=== PATIENT | female | born 1945 | race Caucasian/White ===

== ENCOUNTER 2016-05-26 12:07 | Outpatient (RCR) | payer MEDICARE ==
--- OUTSIDE RECORDS SUMMARY | 2016-05-23 11:40 | XMS REPORT | Continuity of Care Document ---
Author Author [facility] Organization [facility] Address Unknown Phone Unavailable Care Team Providers Care Service Delivery Supervisor Name Role Phone Shena Hernandez PCP [phone] Source Comments Some departments are not documenting in the electronic medical record. If you do not see the information that you expected, contact Release of Information in the Health Information Management department at [phone] for further assistance in locating additional records.[facility] Active Allergies and Adverse Reactions Allergen Noted Date Severity Reactions Comments Adhesive Tape (Rosins) 09/01/2013 RASH Current Medications Prescription Sig. Disp. Refills Start End Date Status Date benazepril (LOTENSIN) 40 Take 40 mg by mouth Active mg tablet daily. gemfibrozil (LOPID) 600 Take 600 mg by mouth Active mg tablet twice daily. simvastatin (ZOCOR) 20 mg Take 20 mg by mouth at Active tablet bedtime daily. aspirin EC 81 mg tablet Take 81 mg by mouth Active daily. hydrochlorothiazide Take 50 mg by mouth Active (HYDRODIURIL) 50 mg daily. tablet DOCOSAHEXANOIC ACID/EPA Take by mouth daily. Active (FISH OIL PO) levothyroxine (SYNTHROID) Take 75 mcg by mouth Active 75 mcg tablet daily. metformin-ER(+) Take 1,000 mg by mouth Active (FORTAMET) 1,000 mg daily with dinner. tablet ferrous sulfate 325 mg Take 325 mg by mouth Active (65 mg iron) tablet daily. Active Problems Problem Noted Date Radiation effect 12/01/2014 Dysphagia 08/13/2012 Cancer of base of tongue (HCC) 10/27/2011 Neck mass 10/27/2011 Social History Tobacco Use Types Packs/Day Years Used Date Former Smoker Cigarettes 15 Quit: 11/01/1979 Smokeless Tobacco: Never Used Alcohol Use Drinks/Week oz/Week Comments No Last Filed Vital Signs Vital Sign Reading Time Taken Blood Pressure 121/69 11/29/2015 9:55 AM CDT Pulse 73 11/29/2015 9:55 AM CDT Temperature 37 C (98.6 F) 11/14/2011 4:46 AM CDT Respiratory Rate - - Height 1.676 m (5' 6") 11/29/2015 9:55 AM CDT Weight 90.084 kg (198 lb 9.6 oz) 11/29/2015 9:55 AM CDT Body Mass Index 32.07 11/29/2015 9:55 AM CDT Oxygen Saturation 96% 11/14/2011 4:46 AM CDT Plan of Care Date Type Specialty Providers Description 05/30/2016 Appointment Otolaryngology Shena Hernandez MD [address] [place] [address] [place] [address] [phone] (Fax) Health Maintenance Due Date Last Done Comments Hepatitis C Screening 1945 Physical (Comprehensive) 1954 Exam Pertussis Vaccine 1958 Tetanus Vaccine 1964 Breast Cancer Screening 1987 Colorectal Cancer 1997 Screening Shingles Vaccine 2007 Osteoporosis Screening 2012 Prevnar/Pneumovax (#1) 2012 Influenza Vaccine 04/06/2016 Results from Last 3 Months Not on file
[2016-05-23 11:47] LABS: BASOPHILS % (AUTO) 1 % (0-10); EOSINOPHILS # (AUTO) 0.2 10^3/uL (0.0-0.3); EOSINOPHILS % (AUTO) 4 % (0-10); LYMPHOCYTES # (AUTO) 1.4 X 10^3 (1.0-4.0); LYMPHOCYTES % (AUTO) 29 % (12-44); MEAN CORPUSCULAR HEMOGLOBIN 30 PG (25-34); MEAN CORPUSCULAR HGB CONC 34 G/DL (32-36); MEAN CORPUSCULAR VOLUME 89 FL (80-99); MEAN PLATELET VOLUME 9.6 FL (7.4-10.4); MONOCYTES # (AUTO) 0.5 X 10^3 (0.0-1.0); MONOCYTES % (AUTO) 10 % (0-12); NEUTROPHILS # (AUTO) 2.8 X 10^3 (1.8-7.8); NEUTROPHILS % (AUTO) 57 % (42-75); PLATELET COUNT 284 10^3/uL (130-400); RED BLOOD COUNT 3.58 10^6/uL (4.35-5.85)
[2016-05-23 12:18] LABS: ALANINE AMINOTRANSFERASE 22 U/L (0-55); ALBUMIN 4.2 G/DL (3.2-4.5); ANION GAP 10 MMOL/L (5-14); ASPARTATE AMINO TRANSFERASE 18 U/L (5-34); BILIRUBIN,TOTAL 0.4 MG/DL (0.1-1.0); BLOOD UREA NITROGEN 23 MG/DL (7-18); BUN/CREATININE RATIO 26; CALCIUM 9.1 MG/DL (8.5-10.1); CARBON DIOXIDE 25 MMOL/L (21-32); CHLORIDE 102 MMOL/L (98-107); GFR ESTIMATED > 60; GLUCOSE 114 MG/DL (70-105); POTASSIUM 4.3 MMOL/L (3.6-5.0); SODIUM 137 MMOL/L (135-145)
[2016-05-23 12:41] LABS: THYROID STIMULATING HORMONE 4.39 UIU/ML (0.35-4.94)
[2016-05-23 13:53] LABS: %SAT TOTAL IRON BINDING CAPIC 21 % (15-50); TIBC 338 ug/dL (280-380)
[2016-05-23 15:58] LABS: UIBC 266 ug/dL (55-450)
[2016-05-24 07:54] LABS: FERRITIN 55 ng/mL (15-150)
[~2016-05-26 12:07] MED LIST: ASP81TEC PO; BNZ40T PO; DOCU100T7 PO; GEMF600T3 PO; HYDR12.56 PO; LVT.1T PO; MTF500T PO; MULT-963 PO; OMEG-34 PO; OMEG1CAP51 PO; PANT40TA PO; SIMV40TA4 PO
== END 2016-08-21 | disposition home or self-care (01) ==
LOC: ONC 12:07
PROVIDERS: ATTEND Internal Medicine Hematology & Oncology
DX: Z08 Encounter for follow-up examination after completed treatment for malignant neoplasm (principal); Z85.810 Personal history of malignant neoplasm of tongue; Z85.3 Personal history of malignant neoplasm of breast; D50.9 Iron deficiency anemia, unspecified; E03.9 Hypothyroidism, unspecified; I10 Essential (primary) hypertension; R82.99 Other abnormal findings in urine; Z79.899 Other long term (current) drug therapy
CPT/HCPCS: 36591; 80053; 82378; 82728; 83540; 84443; 85025; 99213

== ENCOUNTER 2016-08-31 12:56 | Outpatient (RCR) | payer MEDICARE ==
--- OUTSIDE RECORDS SUMMARY | 2016-08-28 09:56 | XMS REPORT | Continuity of Care Document ---
Author Author [facility] Organization [facility] Address Unknown Phone Unavailable Care Team Providers Care Tip Printer Name Role Phone Shena Hernandez PCP [phone] Source Comments Some departments are not documenting in the electronic medical record. If you do not see the information that you expected, contact Release of Information in the Health Information Management department at [phone] for further assistance in locating additional records.[facility] Active Allergies and Adverse Reactions Allergen Noted [...] mouth Active (65 mg iron) tablet daily. famotidine (PEPCID) 20 mg Take 20 mg by mouth Active tablet daily. Active Problems Problem Noted Date Radiation effect 12/01/2014 Dysphagia 08/13/2012 Cancer of base of tongue (HCC) 10/27/2011 Neck mass 10/27/2011 Most Recent Encounters Date Type Specialty Providers Description 05/30/2016 Office Visit Otolaryngology Shena Hernandez MD Cancer of base of tongue (HCC) (Primary Dx); Oropharyngeal dysphagia; Radiation effect, sequela Social History Tobacco Use Types Packs/Day Years Used Date Former Smoker Cigarettes 15 Quit: 11/01/1979 Smokeless Tobacco: Never Used Alcohol Use Drinks/Week oz/Week Comments No Last Filed Vital Signs Vital Sign Reading Time Taken Blood Pressure 152/76 05/30/2016 9:37 AM CDT Pulse 89 05/30/2016 9:37 AM CDT Temperature 37 C (98.6 F) 11/14/2011 4:46 AM CDT Respiratory Rate - - Height 1.676 m (5' 6") 05/30/2016 9:37 AM CDT Weight 93.169 kg (205 lb 6.4 oz) 05/30/2016 9:37 AM CDT Body Mass Index 33.17 05/30/2016 9:37 AM CDT Oxygen Saturation 96% 11/14/2011 4:46 AM CDT Plan of Care Date Type Specialty Providers Description 11/23/2016 Appointment Otolaryngology Demian Toscano PA-C [address] [place] [address] [phone] (Fax) Health Maintenance Due Date Last Done Comments Hepatitis C Screening 1945 Physical (Comprehensive) 1954 Exam Pertussis Vaccine 1958 Tetanus Vaccine 1964 Breast Cancer Screening 1987 Colorectal Cancer 1997 Screening Shingles Vaccine 2007 Osteoporosis Screening 2012 Prevnar/Pneumovax (#1) 2012 Influenza Vaccine 04/06/2016 Results from Last 3 Months Not on file
[2016-08-28 10:11] LABS: BASOPHILS % (AUTO) 0 % (0-10); EOSINOPHILS # (AUTO) 0.2 10^3/uL (0.0-0.3); EOSINOPHILS % (AUTO) 5 % (0-10); LYMPHOCYTES # (AUTO) 1.3 X 10^3 (1.0-4.0); LYMPHOCYTES % (AUTO) 28 % (12-44); MEAN CORPUSCULAR HEMOGLOBIN 29 PG (25-34); MEAN CORPUSCULAR HGB CONC 34 G/DL (32-36); MEAN CORPUSCULAR VOLUME 86 FL (80-99); MEAN PLATELET VOLUME 10.1 FL (7.4-10.4); MONOCYTES # (AUTO) 0.4 X 10^3 (0.0-1.0); MONOCYTES % (AUTO) 9 % (0-12); NEUTROPHILS # (AUTO) 2.7 X 10^3 (1.8-7.8); NEUTROPHILS % (AUTO) 59 % (42-75); PLATELET COUNT 264 10^3/uL (130-400); RED BLOOD COUNT 3.74 10^6/uL (4.35-5.85); RED CELL DISTRIBUTION WIDTH 14.8 % (10.0-14.5); WHITE BLOOD COUNT 4.6 10^3/uL (4.3-11.0)
[2016-08-28 10:48] LABS: ALANINE AMINOTRANSFERASE 15 U/L (0-55); ANION GAP 11 MMOL/L (5-14); ASPARTATE AMINO TRANSFERASE 15 U/L (5-34); BILIRUBIN,TOTAL 0.3 MG/DL (0.1-1.0); BLOOD UREA NITROGEN 24 MG/DL (7-18); BUN/CREATININE RATIO 28; CALCIUM 8.4 MG/DL (8.5-10.1); CARBON DIOXIDE 21 MMOL/L (21-32); CHLORIDE 103 MMOL/L (98-107); CREATININE SERUM 0.85 MG/DL (0.60-1.30); GFR ESTIMATED > 60; GLUCOSE 192 MG/DL (70-105); POTASSIUM 3.8 MMOL/L (3.6-5.0); SODIUM 135 MMOL/L (135-145); TOTAL PROTEIN 6.1 G/DL (6.4-8.2)
[2016-08-28 11:07] LABS: THYROID STIMULATING HORMONE 3.79 UIU/ML (0.35-4.94)
[2016-08-28 13:52] LABS: %SAT TOTAL IRON BINDING CAPIC 18 % (15-50); TIBC 388 ug/dL (280-380)
[2016-08-29 07:44] LABS: FERRITIN 22 ng/mL (15-150); UIBC 317 ug/dL (55-450)
== END 2016-11-26 | disposition home or self-care (01) ==
LOC: ONC 12:56
PROVIDERS: ATTEND Internal Medicine Hematology & Oncology
DX: Z08 Encounter for follow-up examination after completed treatment for malignant neoplasm (principal); Z85.810 Personal history of malignant neoplasm of tongue; Z85.3 Personal history of malignant neoplasm of breast; D50.9 Iron deficiency anemia, unspecified; E03.9 Hypothyroidism, unspecified; I10 Essential (primary) hypertension; R82.99 Other abnormal findings in urine; Z79.899 Other long term (current) drug therapy
CPT/HCPCS: 36591; 80053; 82378; 82728; 83540; 84443; 85025; 99213

== ENCOUNTER → 2016-09-08 | Outpatient (CLI) | payer MEDICARE ==
--- OUTSIDE RECORDS SUMMARY | 2016-09-08 11:01 | XMS REPORT | Continuity of Care Document ---
Author Author [facility] Organization [facility] Address Unknown Phone Unavailable Care Team Providers Care Accessories Repairer Name Role Phone Shena Hernandez PCP [phone] Source Comments Some departments are not documenting in the electronic medical record. If you do not see the information that you expected, contact Release of Information in the Health Information Management department at [phone] for further assistance in locating additional records.[facility] Active Allergies and Adverse Reactions Allergen Noted [...] 11/23/2016 Appointment Otolaryngology Demian Toscano PA-C [address] [facility] [address] [place] [address] [phone] (Fax) Health Maintenance Due Date Last Done Comments Hepatitis C Screening 1945 Physical (Comprehensive) 1954 Exam Pertussis Vaccine 1958 Tetanus Vaccine 1964 Breast Cancer Screening 1987 Colorectal Cancer 1997 Screening Shingles Vaccine 2007 Osteoporosis Screening 2012 Prevnar/Pneumovax (#1) 2012 Influenza Vaccine 04/06/2016 Results from Last 3 Months Not on file
--- NOTE | 2016-09-11 13:13 | Diagnostic Imaging Report ---
Bilateral screening mammogram. The current study was also evaluated with a Computer Aided Detection (CAD) system. INDICATION: Screening. No current complaints stated on the questionnaire. COMPARISON: 08/25/15. FINDINGS: The breasts are composed of scattered fibroglandular densities. There are scattered benign-appearing calcifications. Postsurgical changes in the right breast and skin thickening are again noted without change from the previous studies. Benign-appearing calcifications seen. Allowing for technique and positional differences, no suspicious change is seen. IMPRESSION: No significant change. ACR BI-RADS Category 2: Benign findings. Result letter will be mailed to the patient. Note: At least 10% of breast cancer is not imaged by mammography. Dictated by: Dictated on workstation # [id number]
== END ==
LOC: RAD 10:57
PROVIDERS: ATTEND Internal Medicine Hematology & Oncology
DX: Z12.31 Encounter for screening mammogram for malignant neoplasm of breast (principal); C50.511 Malignant neoplasm of lower-outer quadrant of right female breast
CPT/HCPCS: 77067

== ENCOUNTER → 2016-10-16 | Outpatient (CLI) | payer MEDICARE ==
[~2016-10-16] MED LIST changes: +CATHETER FLUSH 10 ML SYR IV PRN; +REGADENOSON 0.4 MG/5 ML SYR (LEXISCAN) IV ONE
--- OUTSIDE RECORDS SUMMARY | 2016-10-16 07:52 | XMS REPORT | Continuity of Care Document ---
Author Author [facility] Organization [facility] Address Unknown Phone Unavailable Care Team Providers Care Produce Wrapper Name Role Phone Shena Hernandez PCP [phone] Source Comments Some departments are not documenting in the electronic medical record. If you do not see the information that you expected, contact Release of Information in the Health Information Management department at [phone] for further assistance in locating additional records.[facility] Active Allergies and Adverse Reactions Allergen Noted [...] 11/23/2016 Appointment Otolaryngology Demian Toscano PA-C [address] [facility] [address] [place] [address] [phone] (Fax) Health Maintenance Due Date Last Done Comments Hepatitis C Screening 1945 Physical (Comprehensive) 1954 Exam Pertussis Vaccine 1958 Tetanus Vaccine 1964 Breast Cancer Screening 1987 Colorectal Cancer 1997 Screening Shingles Vaccine 2007 Osteoporosis Screening 2012 Prevnar/Pneumovax (#1) 2012 Influenza Vaccine 04/06/2016 Results from Last 3 Months Not on file
[2016-10-16 09:48] VITALS: BP 180/92
[2016-10-16 09:51] VITALS: BP 153/82
[2016-10-16 09:53] VITALS: BP 163/93
[2016-10-16 09:56] VITALS: BP 179/85
--- NOTE | 2016-10-17 11:23 | STRESS TEST ---
PROCEDURE PHYSICIAN: ROBBIN JAVIER DATE OF PROCEDURE: 10/16/2016 LEXISCAN MYOVIEW STRESS TEST REPORT: REFERRING PHYSICIAN: Dr. Velez. INDICATION FOR THE PROCEDURE: Chest pain. BASELINE HEART RATE: 85 BASELINE BLOOD PRESSURE: 180/92 BASELINE EKG: Sinus rhythm with no ischemic changes. IN SUMMARY: The patient was injected with 10.86 mCi of technetium 99 Myoview and the resting images were obtained. Then the patient received 0.4 mg of Lexiscan followed by 28.3 mCi of technetium 99 Myoview. Throughout the test, there were no EKG changes. The resting and stress images were reviewed and compared in the short axis, horizontal long axis, and vertical long axis views. Review of the images showed good radiotracer uptake with no significant ischemia or infarction on SPECT images. SSS is 0. TID value 0.85. On the gated images, the left ventricle appeared to be normal size with normal contractility. Calculated ejection fraction 73%. IN CONCLUSION: 1. The patient tolerated Lexiscan well. 2. No ischemia or infarction on SPECT images. 3. Normal left ventricular size with normal contractility. Calculated ejection fraction 73%. Job ID: [id number] Dictated Date: 10/16/2016 17:26:08 Water Tester Date: 10/17/2016 11:21:34 / fadia
== END ==
LOC: CARD 07:48
PROVIDERS: ATTEND Family Medicine
DX: R07.9 Chest pain, unspecified (principal)
CPT/HCPCS: 78452; 93017

== ENCOUNTER 2016-12-28 09:02 | Outpatient (RCR) | payer MEDICARE ==
[2016-12-18 10:04] LABS: BASOPHILS % (AUTO) 1 % (0-10); EOSINOPHILS # (AUTO) 0.2 10^3/uL (0.0-0.3); EOSINOPHILS % (AUTO) 5 % (0-10); LYMPHOCYTES # (AUTO) 1.2 X 10^3 (1.0-4.0); LYMPHOCYTES % (AUTO) 32 % (12-44); MEAN CORPUSCULAR HEMOGLOBIN 30 PG (25-34); MEAN CORPUSCULAR HGB CONC 34 G/DL (32-36); MEAN CORPUSCULAR VOLUME 89 FL (80-99); MONOCYTES # (AUTO) 0.3 X 10^3 (0.0-1.0); MONOCYTES % (AUTO) 9 % (0-12); NEUTROPHILS # (AUTO) 2.1 X 10^3 (1.8-7.8); NEUTROPHILS % (AUTO) 53 % (42-75); PLATELET COUNT 266 10^3/uL (130-400); RED BLOOD COUNT 3.37 10^6/uL (4.35-5.85); RED CELL DISTRIBUTION WIDTH 14.1 % (10.0-14.5); WHITE BLOOD COUNT 3.9 10^3/uL (4.3-11.0)
[2016-12-18 11:13] LABS: ALANINE AMINOTRANSFERASE 18 U/L (0-55); ANION GAP 8 MMOL/L (5-14); ASPARTATE AMINO TRANSFERASE 18 U/L (5-34); BILIRUBIN,TOTAL 0.3 MG/DL (0.1-1.0); BLOOD UREA NITROGEN 24 MG/DL (7-18); BUN/CREATININE RATIO 30; CALCIUM 8.9 MG/DL (8.5-10.1); CARBON DIOXIDE 26 MMOL/L (21-32); CHLORIDE 105 MMOL/L (98-107); CREATININE SERUM 0.81 MG/DL (0.60-1.30); GFR ESTIMATED > 60; GLUCOSE 137 MG/DL (70-105); POTASSIUM 4.1 MMOL/L (3.6-5.0); SODIUM 139 MMOL/L (135-145); TOTAL PROTEIN 6.7 G/DL (6.4-8.2)
[2016-12-18 16:33] LABS: %SAT TOTAL IRON BINDING CAPIC 14 % (15-50); TIBC 423 ug/dL (280-380)
[2016-12-18 16:37] LABS: UIBC 365 ug/dL
[~2016-12-28 09:02] MED LIST changes: -CATHETER FLUSH 10 ML SYR IV PRN; +FERRIC CARBOXYMALTOSE (CANCER) 750 MG in NS (IVPB) CANCER CENTER 250 ML IV SCH; -REGADENOSON 0.4 MG/5 ML SYR (LEXISCAN) IV ONE
== END 2017-03-18 | disposition home or self-care (01) ==
LOC: ONC 09:02
PROVIDERS: ATTEND Internal Medicine Hematology & Oncology
DX: Z08 Encounter for follow-up examination after completed treatment for malignant neoplasm (principal); Z85.810 Personal history of malignant neoplasm of tongue; Z85.3 Personal history of malignant neoplasm of breast; D50.9 Iron deficiency anemia, unspecified; E03.9 Hypothyroidism, unspecified; I10 Essential (primary) hypertension; R82.99 Other abnormal findings in urine; Z79.899 Other long term (current) drug therapy
CPT/HCPCS: 36591; 80053; 81000; 82378; 82728; 83540; 85025; 96365; 99213

== ENCOUNTER 2017-03-26 14:55 | Outpatient (RCR) | payer MEDICARE ==
[~2017-03-26 14:55] MED LIST changes: -FERRIC CARBOXYMALTOSE (CANCER) 750 MG in NS (IVPB) CANCER CENTER 250 ML IV SCH
[2017-03-26 15:24] LABS: BASOPHILS % (AUTO) 0 % (0-10); EOSINOPHILS # (AUTO) 0.2 10^3/uL (0.0-0.3); EOSINOPHILS % (AUTO) 3 % (0-10); LYMPHOCYTES # (AUTO) 1.1 X 10^3 (1.0-4.0); LYMPHOCYTES % (AUTO) 24 % (12-44); MEAN CORPUSCULAR HEMOGLOBIN 31 PG (25-34); MEAN CORPUSCULAR HGB CONC 34 G/DL (32-36); MEAN CORPUSCULAR VOLUME 94 FL (80-99); MONOCYTES # (AUTO) 0.4 X 10^3 (0.0-1.0); MONOCYTES % (AUTO) 9 % (0-12); NEUTROPHILS # (AUTO) 3.1 X 10^3 (1.8-7.8); NEUTROPHILS % (AUTO) 65 % (42-75); PLATELET COUNT 284 10^3/uL (130-400); RED BLOOD COUNT 3.06 10^6/uL (4.35-5.85); RED CELL DISTRIBUTION WIDTH 14.7 % (10.0-14.5); WHITE BLOOD COUNT 4.8 10^3/uL (4.3-11.0)
[2017-03-26 15:54] LABS: ALANINE AMINOTRANSFERASE 15 U/L (0-55); ANION GAP 10 MMOL/L (5-14); ASPARTATE AMINO TRANSFERASE 18 U/L (5-34); BILIRUBIN,TOTAL 0.3 MG/DL (0.1-1.0); BLOOD UREA NITROGEN 22 MG/DL (7-18); BUN/CREATININE RATIO 26; CALCIUM 9.1 MG/DL (8.5-10.1); CARBON DIOXIDE 24 MMOL/L (21-32); CHLORIDE 103 MMOL/L (98-107); CREATININE SERUM 0.85 MG/DL (0.60-1.30); GFR ESTIMATED > 60; GLUCOSE 97 MG/DL (70-105); POTASSIUM 4.1 MMOL/L (3.6-5.0); SODIUM 137 MMOL/L (135-145); TOTAL PROTEIN 6.5 GM/DL (6.4-8.2)
[2017-03-26 16:58] LABS: THYROID STIMULATING HORMONE 3.02 UIU/ML (0.35-4.94)
[2017-03-26 23:26] LABS: %SAT TOTAL IRON BINDING CAPIC 18 % (15-50); TIBC 404 ug/dL (280-380)
[2017-03-27 10:51] LABS: UIBC 332 ug/dL
== END 2017-05-05 | disposition home or self-care (01) ==
LOC: ONC 14:55
PROVIDERS: ATTEND Internal Medicine Hematology & Oncology
DX: Z08 Encounter for follow-up examination after completed treatment for malignant neoplasm (principal); Z85.810 Personal history of malignant neoplasm of tongue; Z85.3 Personal history of malignant neoplasm of breast; D50.9 Iron deficiency anemia, unspecified; E03.9 Hypothyroidism, unspecified; I10 Essential (primary) hypertension; R82.99 Other abnormal findings in urine; Z79.899 Other long term (current) drug therapy
CPT/HCPCS: 36591; 80053; 82378; 82728; 83540; 84443; 85025

== ENCOUNTER 2017-05-22 08:48 | Outpatient (RCR) | payer MEDICARE ==
[2017-05-21 10:51] LABS: BASOPHILS % (AUTO) 1 % (0-10); EOSINOPHILS # (AUTO) 0.2 10^3/uL (0.0-0.3); EOSINOPHILS % (AUTO) 3 % (0-10); HEMATOCRIT 32 % (35-52); HEMOGLOBIN 10.8 G/DL (11.5-16.0); LYMPHOCYTES # (AUTO) 1.2 X 10^3 (1.0-4.0); LYMPHOCYTES % (AUTO) 27 % (12-44); MEAN CORPUSCULAR HEMOGLOBIN 29 PG (25-34); MEAN CORPUSCULAR HGB CONC 33 G/DL (32-36); MEAN CORPUSCULAR VOLUME 87 FL (80-99); MEAN PLATELET VOLUME 9.8 FL (7.4-10.4); MONOCYTES # (AUTO) 0.4 X 10^3 (0.0-1.0); MONOCYTES % (AUTO) 10 % (0-12); NEUTROPHILS # (AUTO) 2.7 X 10^3 (1.8-7.8); NEUTROPHILS % (AUTO) 60 % (42-75); PLATELET COUNT 256 10^3/uL (130-400); RED BLOOD COUNT 3.71 10^6/uL (4.35-5.85); WHITE BLOOD COUNT 4.5 10^3/uL (4.3-11.0)
[2017-05-21 11:23] LABS: ALANINE AMINOTRANSFERASE 17 U/L (0-55); ALKALINE PHOSPHATASE 77 U/L (40-136); BILIRUBIN,TOTAL 0.4 MG/DL (0.1-1.0); BUN/CREATININE RATIO 25; CALCIUM 9.1 MG/DL (8.5-10.1); CARBON DIOXIDE 25 MMOL/L (21-32); CHLORIDE 103 MMOL/L (98-107); CREATININE SERUM 0.83 MG/DL (0.60-1.30); GFR ESTIMATED > 60; GLUCOSE 164 MG/DL (70-105); POTASSIUM 3.7 MMOL/L (3.6-5.0); SODIUM 138 MMOL/L (135-145)
== END 2017-08-19 | disposition home or self-care (01) ==
LOC: ONC 08:48
PROVIDERS: ATTEND Internal Medicine Hematology & Oncology
DX: Z08 Encounter for follow-up examination after completed treatment for malignant neoplasm (principal); Z85.810 Personal history of malignant neoplasm of tongue; Z85.3 Personal history of malignant neoplasm of breast; D50.9 Iron deficiency anemia, unspecified; E03.9 Hypothyroidism, unspecified; I10 Essential (primary) hypertension; R82.99 Other abnormal findings in urine; Z79.899 Other long term (current) drug therapy
CPT/HCPCS: 36415; 80053; 82728; 83540; 85025; 99213

== ENCOUNTER 2017-11-15 10:37 | Outpatient (RCR) | payer MEDICARE ==
[2017-08-23 14:36] LABS: ABSOLUTE RETIC # 43 10e9/L (24-90); BASOPHILS % (AUTO) 1 % (0-10); EOSINOPHILS # (AUTO) 0.2 10^3/uL (0.0-0.3); EOSINOPHILS % (AUTO) 4 % (0-10); HEMATOCRIT 33 % (35-52); HEMOGLOBIN 11.2 G/DL (11.5-16.0); LYMPHOCYTES # (AUTO) 1.3 X 10^3 (1.0-4.0); LYMPHOCYTES % (AUTO) 29 % (12-44); MEAN CORPUSCULAR HEMOGLOBIN 29 PG (25-34); MEAN CORPUSCULAR HGB CONC 34 G/DL (32-36); MEAN CORPUSCULAR VOLUME 85 FL (80-99); MEAN PLATELET VOLUME 10.5 FL (7.4-10.4); MONOCYTES # (AUTO) 0.4 X 10^3 (0.0-1.0); MONOCYTES % (AUTO) 9 % (0-12); NEUTROPHILS # (AUTO) 2.6 X 10^3 (1.8-7.8); NEUTROPHILS % (AUTO) 57 % (42-75); PLATELET COUNT 263 10^3/uL (130-400); RED BLOOD COUNT 3.84 10^6/uL (4.35-5.85); RED CELL DISTRIBUTION WIDTH 13.6 % (10.0-14.5); RETICULOCYTE % 1.12 % (0.50-2.40); WHITE BLOOD COUNT 4.5 10^3/uL (4.3-11.0)
[2017-08-23 15:04] LABS: ALBUMIN 4.1 GM/DL (3.2-4.5); BILIRUBIN,TOTAL 0.4 MG/DL (0.1-1.0); CALCIUM 9.8 MG/DL (8.5-10.1); CREATININE SERUM 0.93 MG/DL (0.60-1.30); POTASSIUM 4.2 MMOL/L (3.6-5.0); TOTAL PROTEIN 7.1 GM/DL (6.4-8.2)
[2017-11-15 11:01] LABS: BASOPHILS % (AUTO) 1 % (0-10); EOSINOPHILS # (AUTO) 0.1 10^3/uL (0.0-0.3); EOSINOPHILS % (AUTO) 4 % (0-10); HEMATOCRIT 34 % (35-52); HEMOGLOBIN 11.8 G/DL (11.5-16.0); LYMPHOCYTES # (AUTO) 1.3 X 10^3 (1.0-4.0); LYMPHOCYTES % (AUTO) 34 % (12-44); MEAN CORPUSCULAR HEMOGLOBIN 30 PG (25-34); MEAN CORPUSCULAR HGB CONC 35 G/DL (32-36); MEAN CORPUSCULAR VOLUME 85 FL (80-99); MEAN PLATELET VOLUME 10.3 FL (7.4-10.4); MONOCYTES # (AUTO) 0.4 X 10^3 (0.0-1.0); MONOCYTES % (AUTO) 11 % (0-12); NEUTROPHILS % (AUTO) 51 % (42-75); PLATELET COUNT 241 10^3/uL (130-400); RED BLOOD COUNT 3.97 10^6/uL (4.35-5.85); RED CELL DISTRIBUTION WIDTH 13.4 % (10.0-14.5); WHITE BLOOD COUNT 3.9 10^3/uL (4.3-11.0)
[2017-11-15 11:30] LABS: ALANINE AMINOTRANSFERASE 21 U/L (0-55); ALBUMIN 4.3 GM/DL (3.2-4.5); ALKALINE PHOSPHATASE 64 U/L (40-136); BILIRUBIN,TOTAL 0.4 MG/DL (0.1-1.0); BUN/CREATININE RATIO 27; CALCIUM 9.3 MG/DL (8.5-10.1); CARBON DIOXIDE 24 MMOL/L (21-32); CHLORIDE 103 MMOL/L (98-107); CREATININE SERUM 0.75 MG/DL (0.60-1.30); GFR ESTIMATED > 60; GLUCOSE 127 MG/DL (70-105); POTASSIUM 4.1 MMOL/L (3.6-5.0); SODIUM 138 MMOL/L (135-145); TOTAL PROTEIN 7.1 GM/DL (6.4-8.2)
== END 2017-11-21 | disposition home or self-care (01) ==
LOC: ONC 10:37
PROVIDERS: ATTEND Internal Medicine Hematology & Oncology
DX: Z08 Encounter for follow-up examination after completed treatment for malignant neoplasm (principal); Z85.810 Personal history of malignant neoplasm of tongue; Z85.3 Personal history of malignant neoplasm of breast; D50.9 Iron deficiency anemia, unspecified; E03.9 Hypothyroidism, unspecified; I10 Essential (primary) hypertension; R82.99 Other abnormal findings in urine; Z79.899 Other long term (current) drug therapy
CPT/HCPCS: 36415; 80053; 82728; 83540; 83550; 84443; 85025; 85045; 99213

== ENCOUNTER 2017-11-22 10:18 | Outpatient (RCR) | payer MEDICARE | END 2018-02-20 | disposition home or self-care (01) | LOC: ONC 10:18 | PROVIDERS: ATTEND Internal Medicine Hematology & Oncology | DX: Z08 Encounter for follow-up examination after completed treatment for malignant neoplasm (principal); Z85.810 Personal history of malignant neoplasm of tongue; Z85.3 Personal history of malignant neoplasm of breast; D50.9 Iron deficiency anemia, unspecified; E03.9 Hypothyroidism, unspecified; I10 Essential (primary) hypertension; R82.99 Other abnormal findings in urine; Z79.899 Other long term (current) drug therapy | CPT/HCPCS: 99213 ==

== ENCOUNTER 2018-02-21 14:10 | Outpatient (RCR) | payer MEDICARE ==
[2018-02-21 14:21] LABS: BASOPHILS % (AUTO) 0 % (0-10); EOSINOPHILS # (AUTO) 0.2 10^3/uL (0.0-0.3); EOSINOPHILS % (AUTO) 5 % (0-10); HEMATOCRIT 35 % (35-52); LYMPHOCYTES # (AUTO) 1.5 X 10^3 (1.0-4.0); LYMPHOCYTES % (AUTO) 33 % (12-44); MEAN CORPUSCULAR HEMOGLOBIN 30 PG (25-34); MEAN CORPUSCULAR HGB CONC 35 G/DL (32-36); MEAN CORPUSCULAR VOLUME 87 FL (80-99); MEAN PLATELET VOLUME 10.3 FL (7.4-10.4); MONOCYTES # (AUTO) 0.4 X 10^3 (0.0-1.0); MONOCYTES % (AUTO) 10 % (0-12); NEUTROPHILS # (AUTO) 2.3 X 10^3 (1.8-7.8); NEUTROPHILS % (AUTO) 52 % (42-75); PLATELET COUNT 267 10^3/uL (130-400); RED CELL DISTRIBUTION WIDTH 13.4 % (10.0-14.5); WHITE BLOOD COUNT 4.5 10^3/uL (4.3-11.0)
[2018-02-21 14:42] LABS: ALANINE AMINOTRANSFERASE 18 U/L (0-55); ALBUMIN 4.2 GM/DL (3.2-4.5); ALKALINE PHOSPHATASE 79 U/L (40-136); BILIRUBIN,TOTAL 0.4 MG/DL (0.1-1.0); BUN/CREATININE RATIO 26; CALCIUM 10.1 MG/DL (8.5-10.1); CARBON DIOXIDE 28 MMOL/L (21-32); CHLORIDE 101 MMOL/L (98-107); CREATININE SERUM 0.82 MG/DL (0.60-1.30); GFR ESTIMATED > 60; GLUCOSE 99 MG/DL (70-105); POTASSIUM 4.2 MMOL/L (3.6-5.0); SODIUM 137 MMOL/L (135-145); TOTAL PROTEIN 7.2 GM/DL (6.4-8.2)
== END 2018-03-05 | disposition home or self-care (01) ==
LOC: ONC 14:10
PROVIDERS: ATTEND Internal Medicine Hematology & Oncology
DX: Z08 Encounter for follow-up examination after completed treatment for malignant neoplasm (principal); Z85.810 Personal history of malignant neoplasm of tongue; Z85.3 Personal history of malignant neoplasm of breast; D50.9 Iron deficiency anemia, unspecified; E03.9 Hypothyroidism, unspecified; I10 Essential (primary) hypertension; R82.99 Other abnormal findings in urine; Z79.899 Other long term (current) drug therapy
CPT/HCPCS: 36415; 80053; 82728; 83540; 85025; 99213

== ENCOUNTER → 2018-06-21 | Outpatient (CLI) | payer MEDICARE ==
--- NOTE | 2018-06-21 12:48 | Diagnostic Imaging Report ---
PROCEDURE: MRI lumbar spine. TECHNIQUE: Multiplanar, multisequence MRI of the lumbar spine was performed without contrast. INDICATION: Multiple falls with severe low back pain extending into the left leg for two weeks. Patient also has history of breast carcinoma. No prior MRI of lumbar spine studies are available for comparison. There is some straightening of the normal lumbar lordotic curvature. Minimal retrolisthesis of L3 on L4 is noted. Vertebral body heights are maintained. No acute compression fracture is identified. There are T1 and T2 hyperintense lesions involving multiple vertebral bodies suggestive of hemangioma lipomas. Prominent Schmorl's node at the superior endplate of T12 is also seen. There is some mild generalized degenerative disc disease with variable disc space narrowing and desiccation. The conus is unremarkable at the L1 level. T12-L1: The central canal and neural foramina are widely patent. L1-L2: Unremarkable. L2-L3: Unremarkable. L3-L4: There is broad-based disc/osteophyte complex indenting the ventral thecal sac. Central canal remains patent. No significant neural foraminal narrowing is seen. L4-L5: There is some broad-based disc/osteophyte complex flattening the ventral thecal sac. Central canal remains patent. There is some narrowing of the lateral recesses bilaterally, left greater. There is also very mild left neural foraminal narrowing. L5-S1: Central canal is widely patent. Neural foramina are patent. Paraspinous tissues demonstrate heterogeneous mass involving the left kidney posteriorly, not entirely included on this study. This measures at least 3.6 cm. This mass appear to measure proximal 1.[address] study from 10/07/2014. IMPRESSION: 1. Generalized lumbar spondylosis with mild neural foraminal and lateral recess narrowing described level by level above. No central canal stenosis or evidence of acute compression fracture is seen. 2. Left renal mass, significantly increased in size since prior CT from 10/07/2014. This may represent a solid mass and this should be considered renal cell carcinoma until proven otherwise. Dedicated CT with and without IV contrast would be recommended for further evaluation. Dictated by: Dictated on workstation # [id number]
== END ==
LOC: RAD 10:32
PROVIDERS: ATTEND Family Medicine
DX: M47.816 Spondylosis without myelopathy or radiculopathy, lumbar region (principal); M99.73 Connective tissue and disc stenosis of intervertebral foramina of lumbar region; M48.061 Spinal stenosis, lumbar region without neurogenic claudication; M43.16 Spondylolisthesis, lumbar region; M89.9 Disorder of bone, unspecified; M51.46 Schmorl's nodes, lumbar region; M51.36 Other intervertebral disc degeneration, lumbar region
CPT/HCPCS: 72148

== ENCOUNTER → 2018-06-25 | Outpatient (CLI) | payer MEDICARE ==
[2018-06-25 09:32] LABS: BUN/CREATININE RATIO 28; CALCIUM 9.6 MG/DL (8.5-10.1); CARBON DIOXIDE 24 MMOL/L (21-32); CHLORIDE 103 MMOL/L (98-107); CREATININE SERUM 0.88 MG/DL (0.60-1.30); GFR ESTIMATED > 60; GLUCOSE 153 MG/DL (70-105); POTASSIUM 4.1 MMOL/L (3.6-5.0); SODIUM 139 MMOL/L (135-145)
== END ==
LOC: LAB 08:57
PROVIDERS: ATTEND Family Medicine
DX: N28.9 Disorder of kidney and ureter, unspecified (principal)
CPT/HCPCS: 36415; 80048

== ENCOUNTER → 2018-06-26 | Outpatient (CLI) | payer MEDICARE ==
[~2018-06-26] MED LIST changes: +RECEIVED CONTRAST (Hold Metformin) IV SCH
[2018-06-26] MEDS: NS 250 ML (IVPB) BAG IV ONE (10:06)
[2018-06-26] MEDS: IOHEXOL 350 MG/ML 100 ML (OMNIPAQUE 350) VIAL IV ONE (10:06)
--- NOTE | 2018-06-26 11:58 | Diagnostic Imaging Report ---
PROCEDURE: CT abdomen and pelvis with and without contrast. TECHNIQUE: Precontrast acquisitions were acquired through the abdomen and pelvis. Multiple contiguous axial images were obtained through the abdomen and pelvis after the administration of intravenous contrast. INDICATION: Left renal mass. FINDINGS: The previous CT chest, abdomen, and pelvis exam performed on 10/07/2014 noted a 0.8 x 1.4 cm exophytic lesion along the posterior aspect of the lower pole of the left kidney. The possibility that this lesion was solid in nature was raised, and ultrasound was recommended to better characterize this finding. The recent lumbar spine exam of 06/21/2018 noted that this lesion had increased in size suggesting it was neoplastic in nature. On this exam, the exophytic lesion has indeed increased in size and now measures 3.6 x 3.8 cm. This lesion does appear to be solid and consequently should be considered neoplastic until proven otherwise. The left kidney is otherwise unremarkable as is the right kidney. As noted on the previous exam, there is a small 7-8 mm low-density lesion in the right lobe of the liver. This finding is most likely a benign process such as a cyst. As noted on the prior study, the liver is enlarged measuring 22 cm in length. The spleen, pancreas, adrenals, aorta, and inferior vena cava are unremarkable for an acute abnormality. The stomach is partially filled with fluid and consequently difficult to assess. The previous CT chest, abdomen, and pelvis exam of 10/07/2014 did suggest a 3.5 x 2.5 cm fat-density lesion within the small bowel. This was felt to be related to a lipoma. That finding is again evident and does not seem to have changed significantly. There is no sign of a small bowel obstruction. The images through the pelvis again show that there is diverticulosis of the sigmoid and descending colon. There is no evidence for acute diverticulitis. The appendix does not appear to be abnormally thickened. The urinary bladder is grossly unremarkable. There does appear to be air within the endometrial canal. This is of uncertain etiology. Correlation with patient's history regarding recent evaluation of the endometrium would be recommended. The bone windows show no sign of a fracture or of a destructive lesion. There does appear to be deformity of the right femoral neck. This may be a sequela of prior trauma. There is scar formation in summation both lung bases. There is no evidence for pneumonia or for a pleural effusion. There is no parenchymal lung mass identified either. IMPRESSION: 1. There is a 3.6 x 3.8 cm solid mass along the inferior pole of the left kidney. This finding should be considered neoplastic until proven otherwise. 2. There is no other evidence for neoplastic disease. 3. There is no acute abnormality of the abdomen or pelvis identified. 4. There is hepatomegaly. 5. The suspected lipoma within the small bowel seen previously is again evident. 6. There is air in the endometrium. This is of uncertain etiology. 7. These results were discussed with Dr. Velez. Dictated by: Dictated on workstation # [id number]
== END ==
LOC: RAD 09:42
PROVIDERS: ATTEND Family Medicine
DX: N28.89 Other specified disorders of kidney and ureter (principal); R16.0 Hepatomegaly, not elsewhere classified
CPT/HCPCS: 74178

== ENCOUNTER → 2018-07-24 | Outpatient (CLI) | payer MEDICARE ==
[~2018-07-24] MED LIST changes: -RECEIVED CONTRAST (Hold Metformin) IV SCH
--- NOTE | 2018-07-24 17:08 | Diagnostic Imaging Report ---
PROCEDURE: US carotid duplex, bilateral. TECHNIQUE: Multiple real-time grayscale images were obtained over the carotid arteries in various projections, bilaterally. Additional spectral analysis and color Doppler duplex images were also obtained. INDICATION: Acute cerebrovascular insufficiency. Diabetes, hypertension. FINDINGS: Parameters based on the consensus panel Encarnacion-Scale and Doppler ultrasound criteria published June 2003, Radiology, Volume 229. DOPPLER (peak systolic velocity M/S Right Left CCA 0.672 0.913 ICA Proximal 0.75 1.03 ICA Mid 0.764 1.14 ICA Distal 0.827 1.18 RATIO 1.23 1.29 ECA 3.08 1.00 VERT NOT SEEN NOT SEEN There is a small amount of plaque seen in the proximal left ICA without significant stenosis seen. There is also a small amount of plaque seen in the proximal right ICA without significant stenosis. The vertebral arteries are not seen bilaterally. No other areas of stenosis are seen in the bilateral carotids. Waveforms are unremarkable. IMPRESSION: 1. Mild atherosclerosis in the proximal internal carotid arteries bilaterally, without hemodynamically significant stenosis. 2. The vertebral arteries are not well seen. Dictated by: Dictated on workstation # [id number]
== END ==
LOC: RAD 14:23
DX: I65.23 Occlusion and stenosis of bilateral carotid arteries (principal); I67.81 Acute cerebrovascular insufficiency; E11.9 Type 2 diabetes mellitus without complications; I10 Essential (primary) hypertension
CPT/HCPCS: 93880

== ENCOUNTER 2018-08-15 10:36 | Outpatient (RCR) | payer MEDICARE ==
[2018-08-15 10:51] LABS: BASOPHILS % (AUTO) 1 % (0-10); EOSINOPHILS # (AUTO) 0.1 10^3/uL (0.0-0.3); EOSINOPHILS % (AUTO) 3 % (0-10); HEMATOCRIT 34 % (35-52); HEMOGLOBIN 11.5 G/DL (11.5-16.0); LYMPHOCYTES # (AUTO) 1.1 X 10^3 (1.0-4.0); LYMPHOCYTES % (AUTO) 27 % (12-44); MEAN CORPUSCULAR HEMOGLOBIN 29 PG (25-34); MEAN CORPUSCULAR HGB CONC 34 G/DL (32-36); MEAN CORPUSCULAR VOLUME 86 FL (80-99); MEAN PLATELET VOLUME 10.1 FL (7.4-10.4); MONOCYTES # (AUTO) 0.3 X 10^3 (0.0-1.0); MONOCYTES % (AUTO) 8 % (0-12); NEUTROPHILS # (AUTO) 2.5 X 10^3 (1.8-7.8); NEUTROPHILS % (AUTO) 61 % (42-75); PLATELET COUNT 241 10^3/uL (130-400); RED CELL DISTRIBUTION WIDTH 13.4 % (10.0-14.5); WHITE BLOOD COUNT 4.1 10^3/uL (4.3-11.0)
[2018-08-15 11:13] LABS: ALANINE AMINOTRANSFERASE 13 U/L (0-55); ALBUMIN 4.2 GM/DL (3.2-4.5); ALKALINE PHOSPHATASE 80 U/L (40-136); BILIRUBIN,TOTAL 0.4 MG/DL (0.1-1.0); BUN/CREATININE RATIO 22; CALCIUM 9.7 MG/DL (8.5-10.1); CARBON DIOXIDE 24 MMOL/L (21-32); CHLORIDE 101 MMOL/L (98-107); CREATININE SERUM 0.86 MG/DL (0.60-1.30); GFR ESTIMATED > 60; GLUCOSE 130 MG/DL (70-105); POTASSIUM 4.3 MMOL/L (3.6-5.0); SODIUM 137 MMOL/L (135-145); TOTAL PROTEIN 7.1 GM/DL (6.4-8.2)
== END 2018-11-13 | disposition home or self-care (01) ==
LOC: ONC 10:36
PROVIDERS: ATTEND Internal Medicine Hematology & Oncology
DX: Z08 Encounter for follow-up examination after completed treatment for malignant neoplasm (principal); Z85.810 Personal history of malignant neoplasm of tongue; Z85.3 Personal history of malignant neoplasm of breast; D50.9 Iron deficiency anemia, unspecified; E03.9 Hypothyroidism, unspecified; I10 Essential (primary) hypertension; R82.998 Other abnormal findings in urine; Z79.899 Other long term (current) drug therapy
CPT/HCPCS: 36415; 80053; 85025; 99213

== ENCOUNTER → 2018-11-27 | Outpatient (CLI) | payer MEDICARE ==
--- NOTE | 2018-11-27 21:32 | Diagnostic Imaging Report ---
INDICATION: Routine screening. COMPARISON: Prior mammograms from 11/26/2017 and 09/08/2016. EXAMINATION: 2D and 3D bilateral screening mammography was performed with CAD. The current study was also evaluated with a Computer Aided Detection (CAD) system. FINDINGS: Scattered fibronodular densities are identified, bilaterally. Post-therapeutic changes in the right breast are again noted. Skin thickening is similar to prior exam. No mass or malignant appearing microcalcifications are seen. There are scattered benign calcifications present. Axillae are unremarkable. IMPRESSION: Stable bilateral mammograms with no mammographic features suspicious for malignancy identified. ACR BI-RADS Category 2: Benign findings. Result letter will be mailed to the patient. Note: At least 10% of breast cancer is not imaged by mammography. Dictated by: Dictated on workstation # [id number]
== END ==
LOC: RAD 10:12
PROVIDERS: ATTEND Internal Medicine Hematology & Oncology
DX: Z12.31 Encounter for screening mammogram for malignant neoplasm of breast (principal)
CPT/HCPCS: 77067

== ENCOUNTER 2018-12-05 10:47 | Outpatient (RCR) | payer MEDICARE ==
[2018-12-05 11:05] LABS: BASOPHILS % (AUTO) 1 % (0-10); EOSINOPHILS # (AUTO) 0.2 10^3/uL (0.0-0.3); EOSINOPHILS % (AUTO) 4 % (0-10); HEMATOCRIT 36 % (35-52); HEMOGLOBIN 12.2 G/DL (11.5-16.0); LYMPHOCYTES # (AUTO) 1.1 X 10^3 (1.0-4.0); LYMPHOCYTES % (AUTO) 27 % (12-44); MEAN CORPUSCULAR HEMOGLOBIN 28 PG (25-34); MEAN CORPUSCULAR HGB CONC 34 G/DL (32-36); MEAN CORPUSCULAR VOLUME 82 FL (80-99); MEAN PLATELET VOLUME 10.2 FL (7.4-10.4); MONOCYTES # (AUTO) 0.5 X 10^3 (0.0-1.0); MONOCYTES % (AUTO) 11 % (0-12); NEUTROPHILS # (AUTO) 2.4 X 10^3 (1.8-7.8); NEUTROPHILS % (AUTO) 58 % (42-75); PLATELET COUNT 226 10^3/uL (130-400); RED CELL DISTRIBUTION WIDTH 14.7 % (10.0-14.5); WHITE BLOOD COUNT 4.2 10^3/uL (4.3-11.0)
[2018-12-05 11:25] LABS: ALANINE AMINOTRANSFERASE 15 U/L (0-55); ALBUMIN 4.1 GM/DL (3.2-4.5); ALKALINE PHOSPHATASE 87 U/L (40-136); BILIRUBIN,TOTAL 0.4 MG/DL (0.1-1.0); BUN/CREATININE RATIO 27; CALCIUM 9.7 MG/DL (8.5-10.1); CARBON DIOXIDE 23 MMOL/L (21-32); CHLORIDE 105 MMOL/L (98-107); CREATININE SERUM 0.78 MG/DL (0.60-1.30); GFR ESTIMATED > 60; GLUCOSE 111 MG/DL (70-105); POTASSIUM 4.3 MMOL/L (3.6-5.0); SODIUM 140 MMOL/L (135-145); TOTAL PROTEIN 7.1 GM/DL (6.4-8.2)
== END 2019-03-05 | disposition home or self-care (01) ==
LOC: ONC 10:47
PROVIDERS: ATTEND Internal Medicine Hematology & Oncology
DX: Z08 Encounter for follow-up examination after completed treatment for malignant neoplasm (principal); Z85.810 Personal history of malignant neoplasm of tongue; Z85.3 Personal history of malignant neoplasm of breast; D50.9 Iron deficiency anemia, unspecified; E03.9 Hypothyroidism, unspecified; I10 Essential (primary) hypertension; R82.998 Other abnormal findings in urine; Z79.899 Other long term (current) drug therapy
CPT/HCPCS: 36415; 80053; 85025; 99213

== ENCOUNTER 2019-02-06 12:52 | Emergency (ER) | payer MEDICARE ==
[~2019-02-06] VITALS: Ht 167.6 cm; Wt 87.1 kg
--- NOTE | 2019-02-06 14:26 | Diagnostic Imaging Report ---
INDICATION: Status post fall, right knee pain. EXAMINATION: Right knee dated 02/06/2019. FINDINGS: No fractures or dislocations are appreciated. Mild degenerative findings throughout the knee noted. Minimal joint effusion is seen. IMPRESSION: 1. Small joint effusion. No acute osseous abnormality. Dictated by: Dictated on workstation # [id number]
--- NOTE | 2019-02-06 14:34 | Diagnostic Imaging Report ---
PROCEDURE: CT head and maxillofacial without contrast. TECHNIQUE: Multiple contiguous axial images were obtained through the head and facial bones without the use of intravenous contrast. Auto Exposure Controls were utilized during the CT exam to meet ALARA standards for radiation dose reduction. INDICATION: Status post fall face down, nosebleed. EXAMINATION: CT brain and CT maxillofacial 02/06/2019. FINDINGS: Brain: There is no evidence for an acute hemorrhage or infarct. No mass, mass effect, or midline shift. Diffuse chronic changes are noted. 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 Correlate with history. The calvarium demonstrates no acute abnormalities. There is a very small air-fluid level noted in the left maxillary sinus. Please see separate maxillofacial report. IMPRESSION: 1. No acute intracranial process. Prominence of the ventricles is likely on the basis of process such as normal pressure hydrocephalus. Correlate with symptoms and history. Maxillofacial bones: There is a slightly comminuted fracture of the nasal bones bilaterally. No significant displacement is seen. Mild adjacent soft tissue swelling noted. Both globes and postseptal Spaces are unremarkable. There is a small air-fluid level in the left maxillary sinus. No surrounding fractures are appreciated and findings are likely due to sinus disease correlate with symptoms. Remaining sinuses demonstrate mucosal thickening. IMPRESSION: 1. Comminuted nasal bone fractures with adjacent mild soft tissue swelling. 2. Sinus disease as described. Mild acute sinusitis in the left maxillary sinus not excluded. Correlate with symptoms. Dictated by: Dictated on workstation # [id number]
--- NOTE | 2019-02-06 14:46 | ED Trauma-Multisystem ---
General Chief Complaint: Trauma-Non Activation Stated Complaint: FALL - NOSE BLEEDING Nursing Triage Note: Nose abrasion, R knee pain, back pain Source of Information: Patient Exam Limitations: No Limitations History of Present Illness Date Seen by Provider: Feb 06, 2019 Time Seen by Provider: 13:30 Initial Comments 73 year old female who presents to the ED with complaints of nose pain and scratches to the nose and right knee pain after her shoes caught on the concrete causing her to fall forward striking her face and knee on the ground. denies loc head or neck pain. Loss of Consciousness: No Loss of Consciousness Allergies and Home Medications Allergies Coded Allergies: No Known Drug Allergies (Unverified , 10/12/11) Home Medications Aspirin 81 Mg Tabec, 81 MG PO DAILY, (Reported) Benazepril Hcl 40 Mg Tablet, 1 EACH PO DAILY, (Reported) Docusate Sodium 100 Mg Tablet, 100 MG PO DAILY, (Reported) Gemfibrozil 600 Mg Tablet, 1 EACH PO BID, (Reported) Hydrochlorothiazide 12.5 Mg Tablet, 1 EACH PO DAILY, (Reported) Levothyroxine Sodium 100 Mcg Tablet, 1 EACH PO DAILY, (Reported) Metformin Hcl 500 Mg Tablet, 2 EACH PO BID WITH MEALS, (Reported) Multivitamin 1 Each Tablet, 1 EACH PO DAILY, (Reported) Baxter-3 Fatty Acids/Fish Oil 1 Each Capsule, 1 EACH PO BID, (Reported) Baxter-3/Dha/Epa/Fish Oil 1 Each Capsule, 1 EACH PO DAILY, (Reported) Pantoprazole Sodium 40 Mg Tablet.dr, 40 MG PO DAILY, (Reported) Simvastatin 40 Mg Tablet, 40 MG PO HS, (Reported) Patient Home Medication List Home Medication List Reviewed: Yes Review of Systems Review of Systems Constitutional: see HPI; No chills, No fever Nose: See HPI, Pain, Other (abrasions to bridge of nose) Musculoskeletal: see HPI, joint pain (right knee pain) All Other Systems Reviewed Negative Unless Noted: Yes Past Wapkbjm-Pbntet-Tdnfyq Hx Past Med/Social Hx: Reviewed Nursing Past Med/Soc Hx Patient Social History Alcohol Use: Denies Use Recreational Drug Use: No Smoking Status: Former Smoker Recent Foreign Travel: No Contact w/Someone Who Travel: No Recent Infectious Disease Expo: No Recent Hopitalizations: No Immunizations Up To Date Date of Pneumonia Vaccine: December 04, 2012 Date of Influenza Vaccine: Jun 06, 2013 Seasonal Allergies Seasonal Allergies: No Past Medical History Surgeries: Yes (KIDNEY, NECK) Gallbladder, Lumpectomy, Orthopedic Respiratory: No Cardiac: Yes (NO LONGER TAKING BP MEDS) Hypertension Neurological: No Reproductive Disorders: No Sexually Transmitted Disease: No Gastrointestinal: Yes Gastroesophageal Reflux Musculoskeletal: No Endocrine: Yes HEENT: No Cancer: Yes Breast Psychosocial: No Integumentary: No Blood Disorders: No Family Medical History Reviewed Nursing Family Hx Physical Exam Vital Signs Vital Signs - First Documented 02/06/19 12:56 Temp 98.4 Pulse 94 Resp 20 B/P (MAP) 207/112 (143) Pulse Ox 98 O2 Delivery Room Air Height, Weight, BMI Height: 5'6.00" Weight: 192lbs. 0.0oz. 87.958071hg; BMI Method:Stated General Appearance: No Apparent Distress, WD/WN Head: No Evidence of Injury Eyes: Bilateral Eye Normal Inspection, Bilateral Eye PERRL, Bilateral Eye EOMI Ears, Nose, Throat: Hearing Grossly Normal, No Dental Injury, Other (abrasion to bridge of nose and resolved epixtaxis. ) Neck: Full Range of Motion, Normal Inspection, Non Tender, Supple Cardiovascular: Regular Rate, Rhythm, No Edema, No Gallop, No JVD, No Murmur, Normal Peripheral Pulses Respiratory: Chest Non Tender, Lungs Clear, Normal Breath Sounds, No Accessory Muscle Use, No Respiratory Distress Extremity: Normal Capillary Refill, Other Neurologic/Psychiatric: Alert, Oriented x3, Normal Mood/Affect Skin: Normal Color, Warm/Dry Viola Coma Score Best Eye Response (Viola): (4) Open Spontaneously Best Verbal Response (Viola): (5) Oriented Best Motor Response (Sara): (6) Obeys Commands Viola Total: 15 Progress/Results/Core Measures Results/Orders My Orders Orders - CARLOS HERNANDEZ Ct Head/Maxillofacial Wo (02/06/19 13:30) Knee, Right, 3 Views (02/06/19 13:30) Vital Signs/I&O 02/06/19 02/06/19 12:56 14:55 Temp 98.4 98.4 Pulse 94 94 Resp 20 20 B/P (MAP) 207/112 (143) 207/112 (143) Pulse Ox 98 98 O2 Delivery Room Air Blood Pressure Mean: 143 Departure Impression Primary Impression: Nose fracture Disposition: 01 HOME, SELF-CARE Condition: Stable/Unchanged Departure-Patient Inst. Decision time for Depature: 14:42 Referrals: LATESHA BARROW DO (PCP/Family) Primary Care Physician Patient Instructions: Nose Fracture, Skin Abrasions (DC) Add. Discharge Instructions: You may use ibuprofen and Tylenol as directed by the bottle for pain relief. Keep your abrasions cleaned and fresh daily dressings. Follow-up with your primary care provider within within 1 week for recheck. Return back to the em ergency room for worsening symptoms or concerns as. All discharge instructions reviewed with patient and/or family. Voiced understanding. CARLOS HERNANDEZ Feb 06, 2019 14:46
[2019-02-06 14:55] VITALS: BP 207/112
== END 2019-02-06 14:55 | disposition home or self-care (01) ==
LOC: EDUNIT# 12:52 → ER 12:53
DX: S02.2XXA Fracture of nasal bones, initial encounter for closed fracture (principal); I10 Essential (primary) hypertension; K21.9 Gastro-esophageal reflux disease without esophagitis; Z85.3 Personal history of malignant neoplasm of breast; Z79.82 Long term (current) use of aspirin; Z79.84 Long term (current) use of oral hypoglycemic drugs; Z87.891 Personal history of nicotine dependence; Z91.14 Patient's other noncompliance with medication regimen
CPT/HCPCS: 70450; 70486; 73562

== ENCOUNTER → 2019-05-22 | Outpatient (CLI) | payer MEDICARE ==
[2019-05-22 10:03] LABS: BASOPHILS % (AUTO) 0 % (0-10); EOSINOPHILS # (AUTO) 0.2 10^3/uL (0.0-0.3); EOSINOPHILS % (AUTO) 4 % (0-10); HEMATOCRIT 38 % (35-52); HEMOGLOBIN 12.8 G/DL (11.5-16.0); LYMPHOCYTES # (AUTO) 0.9 X 10^3 (1.0-4.0); LYMPHOCYTES % (AUTO) 21 % (12-44); MEAN CORPUSCULAR HEMOGLOBIN 29 PG (25-34); MEAN CORPUSCULAR HGB CONC 34 G/DL (32-36); MEAN CORPUSCULAR VOLUME 86 FL (80-99); MEAN PLATELET VOLUME 10.1 FL (7.4-10.4); MONOCYTES # (AUTO) 0.3 X 10^3 (0.0-1.0); MONOCYTES % (AUTO) 6 % (0-12); NEUTROPHILS # (AUTO) 3.1 X 10^3 (1.8-7.8); NEUTROPHILS % (AUTO) 69 % (42-75); PLATELET COUNT 213 10^3/uL (130-400); RED CELL DISTRIBUTION WIDTH 13.7 % (10.0-14.5); WHITE BLOOD COUNT 4.4 10^3/uL (4.3-11.0)
[2019-05-22 10:29] LABS: ALANINE AMINOTRANSFERASE 14 U/L (0-55); ALKALINE PHOSPHATASE 126 U/L (40-136); BILIRUBIN,TOTAL 0.4 MG/DL (0.1-1.0); BUN/CREATININE RATIO 31; CALCIUM 9.3 MG/DL (8.5-10.1); CARBON DIOXIDE 24 MMOL/L (21-32); CHLORIDE 103 MMOL/L (98-107); CREATININE SERUM 0.83 MG/DL (0.60-1.30); GFR ESTIMATED > 60; GLUCOSE 191 MG/DL (70-105); POTASSIUM 4.2 MMOL/L (3.6-5.0); SODIUM 138 MMOL/L (135-145); TOTAL PROTEIN 7.3 GM/DL (6.4-8.2)
== END ==
LOC: EDSTATUS 03-06 09:40 → ONC 09:41
PROVIDERS: ATTEND Internal Medicine Hematology & Oncology
DX: Z08 Encounter for follow-up examination after completed treatment for malignant neoplasm (principal); Z85.810 Personal history of malignant neoplasm of tongue; Z85.3 Personal history of malignant neoplasm of breast; E03.9 Hypothyroidism, unspecified; D50.9 Iron deficiency anemia, unspecified; I10 Essential (primary) hypertension; Z79.899 Other long term (current) drug therapy
CPT/HCPCS: 36415; 80053; 84443; 85025

== ENCOUNTER → 2019-12-01 | Outpatient (CLI) | payer MEDICARE ==
[2019-12-01 09:08] LABS: BASOPHILS % (AUTO) 1 % (0-10); EOSINOPHILS # (AUTO) 0.2 10^3/uL (0.0-0.3); EOSINOPHILS % (AUTO) 4 % (0-10); HEMATOCRIT 38 % (35-52); HEMOGLOBIN 12.6 G/DL (11.5-16.0); LYMPHOCYTES # (AUTO) 1.4 X 10^3 (1.0-4.0); LYMPHOCYTES % (AUTO) 32 % (12-44); MEAN CORPUSCULAR HEMOGLOBIN 29 PG (25-34); MEAN CORPUSCULAR HGB CONC 34 G/DL (32-36); MEAN CORPUSCULAR VOLUME 85 FL (80-99); MONOCYTES # (AUTO) 0.4 X 10^3 (0.0-1.0); MONOCYTES % (AUTO) 9 % (0-12); NEUTROPHILS # (AUTO) 2.5 X 10^3 (1.8-7.8); NEUTROPHILS % (AUTO) 54 % (42-75); PLATELET COUNT 223 10^3/uL (130-400); RED CELL DISTRIBUTION WIDTH 14.2 % (10.0-14.5); WHITE BLOOD COUNT 4.5 10^3/uL (4.3-11.0)
[2019-12-01 09:26] LABS: ALBUMIN 3.9 GM/DL (3.2-4.5); BILIRUBIN,TOTAL 0.3 MG/DL (0.1-1.0); CALCIUM 9.1 MG/DL (8.5-10.1); CREATININE SERUM 0.97 MG/DL (0.60-1.30); POTASSIUM 4.4 MMOL/L (3.6-5.0); TOTAL PROTEIN 6.9 GM/DL (6.4-8.2)
== END ==
LOC: ONC 09:00
PROVIDERS: ATTEND Internal Medicine Hematology & Oncology
DX: Z08 Encounter for follow-up examination after completed treatment for malignant neoplasm (principal); Z85.810 Personal history of malignant neoplasm of tongue; Z85.3 Personal history of malignant neoplasm of breast; E03.9 Hypothyroidism, unspecified; D50.9 Iron deficiency anemia, unspecified; I10 Essential (primary) hypertension; Z79.899 Other long term (current) drug therapy
CPT/HCPCS: 80053; 84443; 85025; 99213

== ENCOUNTER → 2020-05-31 | Outpatient (CLI) | payer MEDICARE ==
[2020-05-31 09:19] LABS: BASOPHILS % (AUTO) 1 % (0-10); EOSINOPHILS # (AUTO) 0.2 10^3/uL (0.0-0.3); EOSINOPHILS % (AUTO) 3 % (0-10); HEMATOCRIT 40 % (35-52); HEMOGLOBIN 13.5 g/dL (11.5-16.0); LYMPHOCYTES # (AUTO) 1.2 10^3/uL (1.0-4.0); LYMPHOCYTES % (AUTO) 25 % (12-44); MEAN CORPUSCULAR HEMOGLOBIN 29 pg (25-34); MEAN CORPUSCULAR HGB CONC 34 g/dL (32-36); MEAN CORPUSCULAR VOLUME 87 fL (80-99); MEAN PLATELET VOLUME 10.3 fL (9.0-12.2); MONOCYTES # (AUTO) 0.4 10^3/uL (0.0-1.0); MONOCYTES % (AUTO) 7 % (0-12); NEUTROPHILS % (AUTO) 63 % (42-75); PLATELET COUNT 222 10^3/uL (130-400); WHITE BLOOD COUNT 4.7 10^3/uL (4.3-11.0)
[2020-05-31 09:39] LABS: ALANINE AMINOTRANSFERASE 14 U/L (0-55); ALKALINE PHOSPHATASE 86 U/L (40-136); BILIRUBIN,TOTAL 0.4 MG/DL (0.1-1.0); BUN/CREATININE RATIO 25; CARBON DIOXIDE 23 MMOL/L (21-32); CHLORIDE 100 MMOL/L (98-107); CREATININE SERUM 0.81 MG/DL (0.60-1.30); GFR ESTIMATED > 60; GLUCOSE 252 MG/DL (70-105); POTASSIUM 4.2 MMOL/L (3.6-5.0); SODIUM 136 MMOL/L (135-145); TOTAL PROTEIN 7.3 GM/DL (6.4-8.2)
== END ==
LOC: ONC 09:01
PROVIDERS: ATTEND Internal Medicine Hematology & Oncology
DX: D50.9 Iron deficiency anemia, unspecified (principal); E03.9 Hypothyroidism, unspecified; I10 Essential (primary) hypertension; E66.9 Obesity, unspecified; Z78.9 Other specified health status; Z85.3 Personal history of malignant neoplasm of breast; Z85.810 Personal history of malignant neoplasm of tongue
CPT/HCPCS: 80053; 84443; 85025; G0463; 99213

== ENCOUNTER → 2020-12-06 | Outpatient (CLI) | payer MEDICARE ==
[2020-12-06 13:28] LABS: BASOPHILS % (AUTO) 1 % (0-10); EOSINOPHILS # (AUTO) 0.2 10^3/uL (0.0-0.3); EOSINOPHILS % (AUTO) 4 % (0-10); HEMATOCRIT 41 % (35-52); HEMOGLOBIN 13.1 g/dL (11.5-16.0); LYMPHOCYTES # (AUTO) 1.3 10^3/uL (1.0-4.0); LYMPHOCYTES % (AUTO) 29 % (12-44); MEAN CORPUSCULAR HEMOGLOBIN 28 pg (25-34); MEAN CORPUSCULAR HGB CONC 32 g/dL (32-36); MEAN CORPUSCULAR VOLUME 87 fL (80-99); MEAN PLATELET VOLUME 10.3 fL (9.0-12.2); MONOCYTES # (AUTO) 0.4 10^3/uL (0.0-1.0); MONOCYTES % (AUTO) 9 % (0-12); NEUTROPHILS # (AUTO) 2.4 10^3/uL (1.8-7.8); NEUTROPHILS % (AUTO) 56 % (42-75); PLATELET COUNT 263 10^3/uL (130-400); WHITE BLOOD COUNT 4.3 10^3/uL (4.3-11.0)
[2020-12-06 13:46] LABS: ALANINE AMINOTRANSFERASE 11 U/L (0-55); ALBUMIN 3.8 GM/DL (3.2-4.5); ALKALINE PHOSPHATASE 106 U/L (40-136); BILIRUBIN,TOTAL 0.4 MG/DL (0.1-1.0); BUN/CREATININE RATIO 21; CALCIUM 8.9 MG/DL (8.5-10.1); CARBON DIOXIDE 29 MMOL/L (21-32); CHLORIDE 99 MMOL/L (98-107); CREATININE SERUM 0.82 MG/DL (0.60-1.30); GFR ESTIMATED > 60; GLUCOSE 122 MG/DL (70-105); POTASSIUM 4.3 MMOL/L (3.6-5.0); SODIUM 136 MMOL/L (135-145); TOTAL PROTEIN 7.3 GM/DL (6.4-8.2)
== END ==
LOC: ONC 13:10
PROVIDERS: ATTEND Internal Medicine Hematology & Oncology
DX: C50.911 Malignant neoplasm of unspecified site of right female breast (principal); C02.9 Malignant neoplasm of tongue, unspecified; E03.9 Hypothyroidism, unspecified; D63.0 Anemia in neoplastic disease; D50.9 Iron deficiency anemia, unspecified; E66.8 Other obesity; I10 Essential (primary) hypertension; Z98.890 Other specified postprocedural states; Z68.34 Body mass index [BMI] 34.0-34.9, adult; Z79.899 Other long term (current) drug therapy
CPT/HCPCS: 80053; 84443; 85025; G0463; 99213

== ENCOUNTER → 2020-12-14 | Outpatient (CLI) | payer MEDICARE ==
--- NOTE | 2020-12-14 13:14 | Diagnostic Imaging Report ---
INDICATION: Shortness of breath PA and lateral chest Heart size and pulmonary vascularity are both mildly increased. There are no appreciable effusions or pneumothoraces. IMPRESSION: Mild pulmonary venous hypertension. Dictated by: Dictated on workstation # [id number]
== END ==
LOC: RAD 11:51
PROVIDERS: ATTEND Family Medicine
DX: I27.20 Pulmonary hypertension, unspecified (principal)
CPT/HCPCS: 36415; 71046; 83880

== ENCOUNTER → 2021-05-16 | Outpatient (CLI) | payer MEDICARE ==
[~2021-05-16] MED LIST changes: +CEFD300C3 PO; +DOCU-26 PO; +FURO40TA4 PO; +GEMF600T88 PO; +LEVO200T62 PO; +METF-397 PO; +SIMV20TA26 PO
== END ==
LOC: ONC 10:11
PROVIDERS: ATTEND Radiology Radiation Oncology
DX: C50.512 Malignant neoplasm of lower-outer quadrant of left female breast (principal); C02.9 Malignant neoplasm of tongue, unspecified; J18.9 Pneumonia, unspecified organism; D50.9 Iron deficiency anemia, unspecified; I10 Essential (primary) hypertension; E03.9 Hypothyroidism, unspecified; E66.9 Obesity, unspecified; Z20.822 Contact with and (suspected) exposure to COVID-19; Z85.3 Personal history of malignant neoplasm of breast
CPT/HCPCS: 99213

== ENCOUNTER → 2021-07-06 | Outpatient (CLI) | payer MEDICARE ==
[~2021-07-06] MED LIST changes: +BARIUM SUSPENSION 2.1% (VANILLA SILQ) 450 ML PO ONE; +CATHETER FLUSH 10 ML SYR IV PRN; +HOLD METFORMIN - RECEIVED CONTRAST 20 ML VIAL IV SCH; +IOHEXOL 350 MG/ML 100 ML (OMNIPAQUE 350) VIAL IV ONE; +NS 100 ML (IVPB) BAG IV ONE
--- NOTE | 2021-07-06 11:48 | Diagnostic Imaging Report ---
PROCEDURE: CT chest, abdomen, and pelvis with contrast. TECHNIQUE: Multiple contiguous axial images were obtained through the chest, abdomen, and pelvis after the administration of intravenous contrast. Auto Exposure Controls were utilized during the CT exam to meet ALARA standards for radiation dose reduction. 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 History of right breast cancer with lumpectomy. CORRELATION STUDY: CT angio chest 04/19/2021, CT abdomen and pelvis 06/26/2018. FINDINGS: CT CHEST: Postoperative changes in the lateral right breast and axilla with multiple surgical clips and some soft tissue distortion. No suggestion of pathologically enlarged mediastinal, hilar, axillary, and/or internal mammary lymph nodes. Heart size is mildly enlarged with calcification of the mitral valve. Scattered coronary artery calcifications. No pericardial effusion. Likely subpleural fibrosis of the anterior right upper lung. Asymmetrically elevated right diaphragm. Likely areas of scarring about both lung bases. The lung sanches overall are improved. The previously noted more focal mass-like areas of consolidation about the medial right upper lobe and superior segment of the left lower lobe have resolved. Currently, no suspicious appearing pulmonary mass. Small nodule in the anteromedial left upper lobe, stable. Prominent bridging osteophytes through the thoracic spine. No cuca lytic or destructive change. CT ABDOMEN and PELVIS: Very small low-density foci in the subcapsular region of anterolateral right hepatic lobe, stable. Gallbladder absent. Spleen, pancreas, and right adrenal gland appear unchanged and unremarkable. Surgical clips in and around the left suprarenal region present. Slight soft tissue distortion. Right kidney generally unremarkable. Postoperative changes with distortion of the left kidney. Distortion of the left lateral abdominal wall likely on a postoperative bases. Dense aortoiliac wall calcification. A few shotty aortocaval and mesenteric lymph nodes. No definitive pathologically enlarged lymphadenopathy. Gastrointestinal tract demonstrates colonic diverticulosis. Distal colonic fecal loading. Lipoma associated with the small bowel in the left upper quadrant appears slightly larger. No obstruction. Urinary bladder unremarkable. Uterus is somewhat prominent. Additionally, low-density foci near the fundal aspect of the endometrium. Advanced degenerative changes in the bilateral hips, right greater than left. Degenerative changes in the visualized thoracic and lumbar spine. No cuca lytic or destructive change. IMPRESSION: CT CHEST: 1. Improvement at follow-up assessment. The previously noted pulmonary parenchymal opacities have essentially resolved. Currently, no concerning pulmonary mass. 2. Previously noted mediastinal and hilar lymphadenopathy also appears improved. No concerning pathologically enlarged thoracic lymphadenopathy. CT ABDOMEN and PELVIS: 1. No CT findings to suggest abdominal or pelvic metastatic disease. 2. Prior surgical changes of the left kidney and perirenal region. Distortion deformity of the left lateral abdominal wall. 3. Suggestion of prominent appearance of the fundal endometrium. Consideration for follow-up pelvic ultrasound imaging would be recommended. Dictated by: Dictated on workstation # [id number]
== END ==
LOC: RAD 09:45
PROVIDERS: ATTEND Internal Medicine Hematology & Oncology
DX: Q79.59 Other congenital malformations of abdominal wall (principal); Z85.810 Personal history of malignant neoplasm of tongue; Z85.3 Personal history of malignant neoplasm of breast; Z90.11 Acquired absence of right breast and nipple
CPT/HCPCS: 71260; 74177

== ENCOUNTER 2021-07-11 09:17 | Outpatient (RCR) | payer MEDICARE ==
[2021-07-06 09:24] LABS: BASOPHILS % (AUTO) 1 % (0-10); EOSINOPHILS # (AUTO) 0.2 10^3/uL (0.0-0.3); EOSINOPHILS % (AUTO) 4 % (0-10); HEMATOCRIT 36 % (35-52); HEMOGLOBIN 10.9 g/dL (11.5-16.0); LYMPHOCYTES # (AUTO) 1.3 10^3/uL (1.0-4.0); LYMPHOCYTES % (AUTO) 26 % (12-44); MEAN CORPUSCULAR HEMOGLOBIN 24 pg (25-34); MEAN CORPUSCULAR HGB CONC 30 g/dL (32-36); MEAN CORPUSCULAR VOLUME 79 fL (80-99); MEAN PLATELET VOLUME 10.2 fL (9.0-12.2); MONOCYTES # (AUTO) 0.4 10^3/uL (0.0-1.0); MONOCYTES % (AUTO) 9 % (0-12); NEUTROPHILS # (AUTO) 3.1 10^3/uL (1.8-7.8); NEUTROPHILS % (AUTO) 61 % (42-75); PLATELET COUNT 261 10^3/uL (130-400); WHITE BLOOD COUNT 5.1 10^3/uL (4.3-11.0)
[2021-07-06 09:30] LABS: ALBUMIN 3.9 GM/DL (3.2-4.5); BILIRUBIN,TOTAL 0.3 MG/DL (0.1-1.0); CALCIUM 9.1 MG/DL (8.5-10.1); CREATININE SERUM 1.01 MG/DL (0.60-1.30); POTASSIUM 4.2 MMOL/L (3.6-5.0); TOTAL PROTEIN 7.5 GM/DL (6.4-8.2)
[~2021-07-11 09:17] MED LIST changes: -BARIUM SUSPENSION 2.1% (VANILLA SILQ) 450 ML PO ONE; -CATHETER FLUSH 10 ML SYR IV PRN; -HOLD METFORMIN - RECEIVED CONTRAST 20 ML VIAL IV SCH; -IOHEXOL 350 MG/ML 100 ML (OMNIPAQUE 350) VIAL IV ONE; -NS 100 ML (IVPB) BAG IV ONE
[2021-08-01] MEDS ORDERED: GEMF600T88 PO (10:17)
[2021-08-01] MEDS ORDERED: LEVO150C4 PO (10:17)
[2021-08-01] MEDS ORDERED: METF-399 PO (10:17)
[2021-08-01] MEDS ORDERED: FURO40TA4 PO (10:17)
== END 2021-08-05 | disposition home or self-care (01) ==
LOC: ONC 09:17
PROVIDERS: ATTEND Internal Medicine Hematology & Oncology
DX: C50.511 Malignant neoplasm of lower-outer quadrant of right female breast (principal); I10 Essential (primary) hypertension; E03.9 Hypothyroidism, unspecified; D50.9 Iron deficiency anemia, unspecified; E66.9 Obesity, unspecified
CPT/HCPCS: 80053; 85025; 99213

== ENCOUNTER 2021-08-01 09:18 | Day surgery (SDC) | payer MEDICARE ==
[~2021-08-01] VITALS: Ht 165.1 cm; Wt 94.0 kg
[2021-08-01] VITALS (9 sets, daily range): BP systolic 139–231; BP diastolic 75–112
[~2021-08-01 09:18] MED LIST changes: -LEVO150C4 PO; -METF-399 PO
[2021-08-01] MEDS ORDERED: LACTATED RINGERS 1,000 ML IV STA (09:22)
[2021-08-01] MEDS ORDERED: LACTATED RINGERS 1,000 ML IV ONE (09:26)
[2021-08-01] MEDS ORDERED: HURRICAINE EXT TUBE (BENZOCAINE) XX PRN (09:30)
--- NOTE | 2021-08-01 10:16 | Progress Note-Pre Operative ---
Pre-Operative Progress Note H&P Reviewed The H&P was reviewed, patient examined and no changes noted. Time Seen by Provider: 10:14 Date H&P Reviewed: Aug 01, 2021 Time H&P Reviewed: 10:14 Pre-Operative Diagnosis: Iron Deficiency anemia EMA WARREN DO Aug 01, 2021 10:16
[2021-08-01] MEDS ORDERED: METF-399 PO (10:17)
[2021-08-01] MEDS ORDERED: FURO40TA4 PO (10:17)
[2021-08-01] MEDS ORDERED: LEVO150C4 PO (10:17)
[2021-08-01] MEDS ORDERED: GEMF600T88 PO (10:17)
[2021-08-01] MEDS ORDERED: PROPOFOL INJECTION 50 ML IV ONE (10:43)
[2021-08-01] MEDS ORDERED: MIDAZOLAM 2 MG/2 ML (VERSED) VIAL ONE (10:43)
[2021-08-01] MEDS ORDERED: meTOprolol 5 MG/5 ML (LOPRESSOR) VIAL ONE (11:10)
--- NOTE | 2021-08-01 11:39 | Progress Note-Post Operative ---
Post-Operative Progess Note Surgeon (s)/Violin Tutor (s) Surgeon EMA WARREN DO Violin Tutor: JANNY Sevilla Pre-Operative Diagnosis Iron Deficiency anemia Post-Operative Diagnosis antral ulcer hiatal hernia gastric polyp esophagitis Polyps AVMs diverticula int hemorrhoids Procedure & Operative Findings Date of Procedure 08/01/21 Procedure Performed/Findings EGD with bx Colon with snare PROCEDURE NOTE: After informed consent was obtained, the patient was brought to the endoscopy suite, placed in bed in left lateral decubitus position. She was administered IV sedation by the BOOKMOBILE LIBRARIAN who then monitored vitals the entire time, heart rate, blood pressure and pulse ox and the scope was inserted down the mouth through the esophagus into the stomach. On the way down, noted a lot of hard mucous vs. food particles and took a picture. Pushed into the stomach and saw what looked like a possible healed ulcer right at pylorus. Pushed past the antrum into the duodenum; duodenum looked good. Pulled back and did a biopsy of the ulcer and then retroflexed the scope, saw a small hiatal hernia. Took a picture of this and then noted a polyp; removed it with cold biopsy. Pulled the scope into the GE junction, took a picture and then did a biopsy of the GE junction. Pushed the scope back into the stomach, suctioned all the air out of the stomach. At this point pulled the scope up the esophagus and out the mouth. Switched camera, switched gloves, went down below, started the colonoscopy. Began pushing in and noted some diverticula and took a picture. There was a lot of retained fecal material mostly liquid b ut some large formed stool balls. Pushed all the way in to about 150 cm to get to the cecum. However, just outside the cecum in the Ascending colon saw a large mass; may have been on a stalk and elected to do a biopsy of it. In the cecum I took a picture of the appendiceal orifice and noted the ileocecal valve. Finally started to slowly withdraw the scope, insufflating to look circumferentially at the tejeda. Starting in the cecum and then up the ascending colon; saw another polyp and elected to chinmay ve it using a snare. Continued up to the hepatic flexure, then down the transverse colon to the splenic flexure, into the descending colon, down into the sigmoid and finally into the rectum. Found 2 polyps here and removed them with a snare. I also noted multiple AVM's throughout sigmoid colon and rectum; pictures were taken. Finally, retroflexed in the rectal vault and actually saw at least 4 more polyps and some minimal internal hemorrhoids and took a picture of this. The patient tolerated the procedure and she recovered in the endoscopy suite. She will need a repeat colonoscopy in 1 yr Anesthesia Type IV sedation by BOOKMOBILE LIBRARIAN Estimated Blood Loss Estimated blood loss (mL): scant Specimens/Packing Specimens Removed antral bx GE jxn bx Gatric polyp asc colon bx of mass Asc colon polyp rectal polyp x 2 EMA WARREN DO Aug 01, 2021 11:39
--- NOTE | 2021-08-01 11:42 | Endoscopy Discharge Instruct ---
Endo Procedure/Findings Findings 1.: Gastric Ulcer 2.: Hiatal Hernia 3.: Polyp, Other Findings (AVMs) 4.: Diverticulosis, Internal Hemorrhoids Discharge Instructions - Activity: You might feel a little sleepy until tomorrow. This is due to the medicine you received to relax you. Until tomorrow, you should: NOT drive a car, operate machinery or power tools. NOT drink any alcoholic beverages. NOT make any important decisions or sign importortant papers. Do not return to work until tomorrow, unless otherwise instructed. Resume previous activities tomorrow. Diet: Start by taking liquids. If you tolerate liquids, advance to solid food. 1.: EGD in 1 year 2.: Colonoscopy in 1 year Notify Physician - If you experience excessive bleeding, unusual abdominal pain, fever, or chest pain, contact your doctor immediately. EMA WARREN DO Aug 01, 2021 11:42
--- NOTE | 2021-08-01 11:42 | Anesthesia-General Post-Op ---
MAC Patient Condition Mental Status/LOC: Same as Preop Cardiovascular: Satisfactory Nausea/Vomiting: Absent Respiratory: Satisfactory Pain: Controlled Complications: Absent Post Op Complications Complications None Follow Up Care/Instructions Patient Instructions None needed. Anesthesiology Discharge Order Discharge Order Patient is doing well, no complaints, stable vital signs, no apparent adverse anesthesia problems. No complications reported per nursing. HARLAN WALKER CRNA Aug 01, 2021 11:42
== END 2021-08-01 12:36 | disposition home or self-care (01) ==
LOC: ENDO 09:18
PROVIDERS: ATTEND Surgery
DX: K25.9 Gastric ulcer, unspecified as acute or chronic, without hemorrhage or perforation (principal); K31.89 Other diseases of stomach and duodenum; K21.00 Gastro-esophageal reflux disease with esophagitis, without bleeding; D12.2 Benign neoplasm of ascending colon; D50.9 Iron deficiency anemia, unspecified; K62.1 Rectal polyp; K63.89 Other specified diseases of intestine; K44.9 Diaphragmatic hernia without obstruction or gangrene; K64.4 Residual hemorrhoidal skin tags; K57.30 Diverticulosis of large intestine without perforation or abscess without bleeding; K55.20 Angiodysplasia of colon without hemorrhage; I10 Essential (primary) hypertension; E11.9 Type 2 diabetes mellitus without complications; E03.9 Hypothyroidism, unspecified; Z87.891 Personal history of nicotine dependence; Z79.84 Long term (current) use of oral hypoglycemic drugs; Z79.899 Other long term (current) drug therapy; Z80.9 Family history of malignant neoplasm, unspecified; Z83.3 Family history of diabetes mellitus
CPT/HCPCS: 88305

== ENCOUNTER → 2021-08-01 | Outpatient (CLI) | payer MEDICARE ==
[~2021-08-01] MED LIST changes: +LEVO150C4 PO; +METF-399 PO
== END ==
LOC: MERGE 09:44 → LABNPT 09:44
PROVIDERS: ATTEND Surgery
DX: Z20.822 Contact with and (suspected) exposure to COVID-19 (principal)
CPT/HCPCS: 87636

== ENCOUNTER → 2021-11-10 | Outpatient (CLI) | payer MEDICARE ==
[~2021-11-10] MED LIST changes: +LEVO150C4 PO; +METF-399 PO
--- NOTE | 2021-11-10 12:38 | Diagnostic Imaging Report ---
INDICATION: Shortness of breath and hypertension. PA and lateral chest obtained at 11:00 a.m. FINDINGS: Heart is mildly enlarged. There are chronic appearing increased interstitial markings. There are surgical clips in the right axilla. There is unchanged elevation of the right hemidiaphragm. There is no pneumothorax or pleural fluid. IMPRESSION: Mild cardiomegaly. Chronic appearing increased interstitial markings with no acute consolidation or pleural fluid. Unchanged elevation of the right hemidiaphragm. Dictated by: Dictated on workstation # [id number]
== END ==
LOC: RAD 10:39
PROVIDERS: ATTEND Family Medicine
DX: I11.9 Hypertensive heart disease without heart failure (principal); Q79.1 Other congenital malformations of diaphragm
CPT/HCPCS: 36415; 71046; 83880; 84484

== ENCOUNTER 2022-01-25 14:02 | Outpatient (RCR) | payer MEDICARE ==
[2022-01-20 12:32] LABS: BASOPHILS % (AUTO) 1 % (0-10); EOSINOPHILS # (AUTO) 0.2 10^3/uL (0.0-0.3); EOSINOPHILS % (AUTO) 3 % (0-10); HEMATOCRIT 33 % (35-52); LYMPHOCYTES # (AUTO) 1.2 10^3/uL (1.0-4.0); LYMPHOCYTES % (AUTO) 25 % (12-44); MEAN CORPUSCULAR HEMOGLOBIN 23 pg (25-34); MEAN CORPUSCULAR HGB CONC 31 g/dL (32-36); MEAN CORPUSCULAR VOLUME 76 fL (80-99); MEAN PLATELET VOLUME 9.3 fL (9.0-12.2); MONOCYTES # (AUTO) 0.4 10^3/uL (0.0-1.0); MONOCYTES % (AUTO) 9 % (0-12); NEUTROPHILS # (AUTO) 2.9 10^3/uL (1.8-7.8); NEUTROPHILS % (AUTO) 62 % (42-75); PLATELET COUNT 317 10^3/uL (130-400); WHITE BLOOD COUNT 4.7 10^3/uL (4.3-11.0)
[2022-01-20 12:37] LABS: ALBUMIN 3.8 GM/DL (3.2-4.5); BILIRUBIN,TOTAL 0.3 MG/DL (0.1-1.0); CALCIUM 9.3 MG/DL (8.5-10.1); CREATININE SERUM 0.98 MG/DL (0.60-1.30); POTASSIUM 4.7 MMOL/L (3.6-5.0)
[2022-01-31] MEDS ORDERED: CEPH500T PO (23:07)
[2022-02-01] MEDS ORDERED: FLUC150T PO (11:08)
== END 2022-02-02 | disposition home or self-care (01) ==
LOC: ONC 14:02
PROVIDERS: ATTEND Internal Medicine Hematology & Oncology
DX: C50.511 Malignant neoplasm of lower-outer quadrant of right female breast (principal); C02.9 Malignant neoplasm of tongue, unspecified; I10 Essential (primary) hypertension; E03.9 Hypothyroidism, unspecified; D50.9 Iron deficiency anemia, unspecified; J44.9 Chronic obstructive pulmonary disease, unspecified; E66.9 Obesity, unspecified
CPT/HCPCS: 36415; 80053; 85025; 99213

== ENCOUNTER 2022-01-31 20:11 | Emergency (ER) | payer MEDICARE ==
[~2022-01-31] VITALS: Ht 172.7 cm; Wt 88.9 kg
[2022-01-31] MEDS ORDERED: NS IV 1000 ML 1,000 ML IV STA (20:46)
--- NOTE | 2022-01-31 20:46 | ED Abdominal Pain ---
General Chief Complaint: Abdominal/GI Problems Stated Complaint: ABD PAIN - VOMITING - CONSTIPATION Source of Information: Patient Exam Limitations: No Limitations History of Present Illness Date Seen by Provider: Jan 31, 2022 Time Seen by Provider: 20:44 Initial Comments Patient is a 76-year-old female with a history of tongue cancer, kidney cancer, breast cancer who presents ED with right lower abdominal pain. She describes the discomfort the pain as more discomfort. Pain has been constant for the past 3 days. She woke up with pain has been taken Tylenol with some improvement. Sh e states she has been vomiting over the past 3 days but more today. She states she vomited 3 times without any hematemesis. Normal bowel movements. She reports some mild discomfort with urination concerning for UTI. History of cholecystectomy. Patient denies chest pain, shortness of breath, cough, fever, diarrhea, sore throat, headache, neck pain. She reports history of kidney disease with abnormal kidney function in the past. She states she feels wheezy and may be dehydrated Allergies and Home Medications Allergies Coded Allergies: No Known Drug Allergies (Unverified , 10/12/11) Patient Home Medication List Home Medication List Reviewed: Yes Cephalexin (Cephalexin) 500 Mg Tablet, 500 MG PO TID Prescribed by: OC MEZA on 01/31/22 2307 Docusate Sodium (Stool Softener) 100 Mg Capsule, 100 MG PO DAILY, (Reported) Entered as Reported by: CHELA ANDERSON on 04/20/21 1046 Fluconazole (Diflucan) 150 Mg Tablet, 150 MG PO ONCE Prescribed by: OC MEZA on 02/01/22 1108 Furosemide (Furosemide) 40 Mg Tablet, 40 MG PO DAILY, (Reported) Entered as Reported by: MARIANA DOUGHERTY on 08/01/21 1017 Gemfibrozil (Gemfibrozil) 600 Mg Tablet, 600 MG PO BID, (Reported) Entered as Reported by: MARIANA DOUGHERTY on 08/01/21 1017 Levothyroxine Sodium (Levothyroxine) 150 Mcg Capsule, 150 MCG PO DAILY, (Reported) Entered as Reported by: MARIANA DOUGHERTY on 08/01/21 1017 Metformin HCl (Metformin HCl) 1,000 Mg Tablet, 1,000 MG PO BID, (Reported) Entered as Reported by: MARIANA DOUGHERTY on 08/01/21 1017 Simvastatin (Simvastatin) 20 Mg Tablet, 20 MG PO HS, (Reported) Entered as Reported by: CHELA ANDERSON on 04/20/21 1046 Review of Systems Review of Systems Constitutional: No chills, No malaise, No weakness EENTM: No Double Vision, No Eye Pain Respiratory: Denies Shortness of Air Cardiovascular: Denies Chest Pain, Denies Edema Gastrointestinal: Abdominal Pain; Denies Diarrhea; Nausea, Vomiting Genitourinary: Denies Burning, Denies Discharge Musculoskeletal: No back pain Skin: No change in color, No change in hair/nails All Other Systems Reviewed Negative Unless Noted: Yes Past Kpkgezk-Adodrr-Pfjiex Hx Immunizations Up To Date First/Initial COVID19 Vaccinat: OCTOBER 2020 Second COVID19 Vaccination Jj: NOVEMBER 2020 Seasonal Allergies Seasonal Allergies: No Past Medical History Surgeries: Yes (KIDNEY, NECK) Gallbladder, Lumpectomy, Orthopedic Respiratory: Yes (APR 2021- PNEUMONIA) Pneumonia Cardiac: Yes Hypertension Neurological: No Reproductive Disorders: No Sexually Transmitted Disease: No Genitourinary: Yes (KIDNEY MASS) Gastrointestinal: Yes Gastroesophageal Reflux Musculoskeletal: No Endocrine: Yes HEENT: No Cancer: Yes Breast Psychosocial: No Integumentary: No Blood Disorders: No Family Medical History No Pertinent Family Hx Physical Exam Vital Signs Vital Signs - First Documented 01/31/22 20:38 Temp 36.4 Pulse 96 Resp 20 B/P (MAP) 232/117 (155) Pulse Ox 95 O2 Delivery Room Air Capillary Refill : Height/Weight/BMI Height: 5'6.00" Weight: 192lbs. 0.0oz. 87.861147lo; 34.48 BMI Method:Stated General Appearance: WD/WN, no apparent distress HEENT: PERRL/EOMI, normal ENT inspection, TMs normal, pharynx normal Neck: non-tender, full range of motion, supple Respiratory: chest non-tender, lungs clear, normal breath sounds, no respiratory distress, no accessory muscle use Cardiovascular: regular rate, rhythm, no edema, no gallop, no JVD Gastrointestinal: normal bowel sounds, soft, no organomegaly, tenderness (Right lower quadrant tenderness) Extremities: normal range of motion, non-tender, normal inspection Back: normal inspection, no CVA tenderness, no vertebral tenderness Neurologic/Psychiatric: linotyper II-XII nml as tested, no motor/sensory deficits, alert, normal mood/affect, oriented x 3 Skin: normal color, warm/dry Progress/Results/Core Measures Results/Orders Lab Results Laboratory Tests Test 01/31/22 20:18 01/31/22 20:35 Range/Units Urine Color YELLOW Urine Clarity CLOUDY Urine pH 6.5 5-9 Urine Specific [place] 1.020 1.016-1.022 Urine Protein 2+ H NEGATIVE Urine Glucose (UA) NEGATIVE NEGATIVE Urine Ketones NEGATIVE NEGATIVE Urine Nitrite POSITIVE H NEGATIVE Urine Bilirubin NEGATIVE NEGATIVE Urine Urobilinogen 0.2 < = 1.0 MG/DL Urine Leukocyte Esterase 2+ H NEGATIVE Urine RBC (Auto) TRACE-I H NEGATIVE Urine RBC NONE /HPF Urine WBC 50-100 H /HPF Urine Squamous Epithelial Cells NONE /HPF Urine Renal Epithelial Cells 0-2 /HPF Urine Crystals NONE /LPF Urine Bacteria FEW H /HPF Urine Casts NONE /LPF Urine Mucus NEGATIVE /LPF Urine Yeast MODERATE H /HPF Urine Culture Indicated YES White Blood Count 6.9 4.3-11.0 10^3/uL Red Blood Count 4.76 3.80-5.11 10^6/uL Hemoglobin 11.4 L 11.5-16.0 g/dL Hematocrit 36 35-52 % Mean Corpuscular Volume 75 L 80-99 fL Mean Corpuscular Hemoglobin 24 L 25-34 pg Mean Corpuscular Hemoglobin Concent 32 32-36 g/dL Red Cell Distribution Width 18.8 H 10.0-14.5 % Platelet Count 274 130-400 10^3/uL Mean Platelet Volume 10.0 9.0-12.2 fL Immature Granulocyte % (Auto) 0 % Neutrophils (%) (Auto) 75 42-75 % Lymphocytes (%) (Auto) 16 12-44 % Monocytes (%) (Auto) 7 0-12 % Eosinophils (%) (Auto) 1 0-10 % Basophils (%) (Auto) 0 0-10 % Neutrophils # (Auto) 5.2 1.8-7.8 10^3/uL Lymphocytes # (Auto) 1.1 1.0-4.0 10^3/uL Monocytes # (Auto) 0.5 0.0-1.0 10^3/uL Eosinophils # (Auto) 0.1 0.0-0.3 10^3/uL Basophils # (Auto) 0.0 0.0-0.1 10^3/uL Immature Granulocyte # (Auto) 0.0 0.0-0.1 10^3/uL Sodium Level 131 L 135-145 MMOL/L Potassium Level 4.7 3.6-5.0 MMOL/L Chloride Level 96 L 98-107 MMOL/L Carbon Dioxide Level 22 21-32 MMOL/L Anion Gap 13 5-14 MMOL/L Blood Urea Nitrogen 24 H 7-18 MG/DL Creatinine 0.95 0.60-1.30 MG/DL Estimat Glomerular Filtration Rate 63 BUN/Creatinine Ratio 25 Glucose Level 185 H 70-105 MG/DL Calcium Level 9.7 8.5-10.1 MG/DL Corrected Calcium 9.6 8.5-10.1 MG/DL Total Bilirubin 0.3 0.1-1.0 MG/DL Aspartate Amino Transf (AST/SGOT) 13 5-34 U/L Alanine Aminotransferase (ALT/SGPT) 8 0-55 U/L Alkaline Phosphatase 112 40-136 U/L C-Reactive Protein High Sensitivity 1.33 H 0.00-0.50 MG/DL Total Protein 8.3 H 6.4-8.2 GM/DL Albumin 4.1 3.2-4.5 GM/DL Lipase 36 8-78 U/L My Orders Orders - JEAN CLAUDE THOMPSON Cbc With Automated Diff (01/31/22 20:41) Comprehensive Metabolic Panel (01/31/22 20:41) Lipase (01/31/22 20:41) Hs C Reactive Protein (01/31/22 20:41) Ua Culture If Indicated (01/31/22 20:41) Ct Abd/Pelv W (Appendicitis) (01/31/22 20:41) Ns Iv 1000 Ml (Sodium Chloride 0.9%) (01/31/22 20:46) Ondansetron Injection (Zofran Injectio (01/31/22 21:00) Iohexol Injection (Omnipaque 350 Mg/Ml 1 (01/31/22 21:00) Received Contrast (Hold Metformin- Contr (01/31/22 21:00) Ns (Ivpb) (Sodium Chloride 0.9% Ivpb Bag (01/31/22 21:00) Sodium Chloride Flush (Catheter Flush Sy (01/31/22 21:00) Urine Culture (01/31/22 20:18) Ceftriaxone 1 Gm Pre-Mix (Rocephin 1 Gm (01/31/22 21:12) Hydralazine Injection (Apresoline Inject (01/31/22 22:00) Medications Given in ED Vital Signs/I&O 01/31/22 01/31/22 20:38 23:23 Temp 36.4 Pulse 96 78 Resp 20 22 B/P (MAP) 232/117 (155) 157/95 Pulse Ox 95 98 O2 Delivery Room Air Room Air Departure Communication (PCP) Patient complaint of right lower quadrant pain with radiation to right sided abdomen. She does report some urinary symptoms with vomiting today. Patient was hypertensive. Currently on blood pressure medication and was given a dose of hydralazine with improvement. She was given a liter of fluid. Patient is afebrile. Vital signs otherwise unremarkable. She does have tenderness to ri ght sided abdomen rule out appendicitis versus kidney stone versus other acute abnormality. Urinalysis concerning for UTI. Was given Rocephin. Yeast noted. Will discharge with oral Diflucan [address] Abd and pelvis concerning for hydronephrosis and hydroureter without any obvious obstruction. Possible recently passed stone. She denies history of kidney stones that she knows of. Patient is currently pain-free. Possibly small stone that eventually passed. Due to her urinary tract infection will discharge with Keflex. Patient is tolerating p.o. fluids. She was slightly dehydrated. Stable kidney function. Normal white blood count. Does not appear toxic or septic. No chest pain, cough or shortness of breath. Follow-up with PCP in 2 to 3 days for reevaluation. Return precautions were discussed. Continue monitoring blood pressure. There was prominent stool in her colon. Discussed laxatives however she states she has been having normal bowel movements. No evidence of obstruction Impression Primary Impression: UTI (urinary tract infection) Additional Impression: Elevated blood pressure reading Disposition: HOME, SELF-CARE Condition: Stable Departure-Patient Inst. Decision time for Depature: 23:07 Referrals: LATESHA BARROW DO (PCP/Family) Primary Care Physician Patient Instructions: Urinary Tract Infection, Adult ED Scripts Fluconazole (Diflucan) 150 Mg Tablet 150 MG PO ONCE, #1 TAB Prov: JEAN CLAUDE THOMPSON 02/01/22 Cephalexin (Cephalexin) 500 Mg Tablet 500 MG PO TID for 10 Days, #30 TAB Prov: JEAN CLAUDE THOMPSON 01/31/22 JEAN CLAUDE THOMPSON Jan 31, 2022 20:46
[2022-01-31 20:47] LABS: BASOPHILS % (AUTO) 0 % (0-10); EOSINOPHILS # (AUTO) 0.1 10^3/uL (0.0-0.3); EOSINOPHILS % (AUTO) 1 % (0-10); HEMATOCRIT 36 % (35-52); HEMOGLOBIN 11.4 g/dL (11.5-16.0); LYMPHOCYTES # (AUTO) 1.1 10^3/uL (1.0-4.0); LYMPHOCYTES % (AUTO) 16 % (12-44); MEAN CORPUSCULAR HEMOGLOBIN 24 pg (25-34); MEAN CORPUSCULAR HGB CONC 32 g/dL (32-36); MEAN CORPUSCULAR VOLUME 75 fL (80-99); MONOCYTES # (AUTO) 0.5 10^3/uL (0.0-1.0); MONOCYTES % (AUTO) 7 % (0-12); NEUTROPHILS # (AUTO) 5.2 10^3/uL (1.8-7.8); NEUTROPHILS % (AUTO) 75 % (42-75); PLATELET COUNT 274 10^3/uL (130-400); WHITE BLOOD COUNT 6.9 10^3/uL (4.3-11.0)
[2022-01-31 20:52] LABS: BILIRUBIN,URINE NEGATIVE (NEGATIVE); CLARITY,URINE CLOUDY; COLOR,URINE YELLOW; GLUCOSE, URINE (UA) NEGATIVE (NEGATIVE); KETONES,URINE NEGATIVE (NEGATIVE); LEUKOCYTE ESTERASE ,URINE 2+ (NEGATIVE); NITRITE,URINE POSITIVE (NEGATIVE); PH,URINE 6.5 (5-9); PROTEIN,URINE 2+ (NEGATIVE)
[2022-01-31 20:59] LABS: BACTERIA,URINE FEW /HPF; RENAL EPITHELIAL CELLS,URINE 0-2 /HPF; WBC,URINE 50-100 /HPF
[2022-01-31 21:00] LABS: YEAST,URINE MODERATE /HPF
[2022-01-31] MEDS ORDERED: IOHEXOL 350 MG/ML 100 ML (OMNIPAQUE 350) VIAL IV ONE (21:00)
[2022-01-31] MEDS ORDERED: CATHETER FLUSH 10 ML SYR IV PRN (21:00)
[2022-01-31] MEDS ORDERED: HOLD METFORMIN - RECEIVED CONTRAST 20 ML VIAL IV SCH (21:00)
[2022-01-31] MEDS ORDERED: NS 100 ML (IVPB) BAG IV ONE (21:00)
[2022-01-31] MEDS ORDERED: ONDANSETRON 4 MG/2 ML (SDV) Z0FRAN IVP ONE (21:00)
[2022-01-31 21:03] LABS: ALBUMIN 4.1 GM/DL (3.2-4.5); POTASSIUM 4.7 MMOL/L (3.6-5.0)
[2022-01-31 21:04] LABS: CALCIUM 9.7 MG/DL (8.5-10.1)
[2022-01-31 21:05] LABS: TOTAL PROTEIN 8.3 GM/DL (6.4-8.2)
[2022-01-31 21:07] LABS: BILIRUBIN,TOTAL 0.3 MG/DL (0.1-1.0)
[2022-01-31 21:09] LABS: CREATININE SERUM 0.95 MG/DL (0.60-1.30)
[2022-01-31] MEDS ORDERED: cefTRIAXone 1 GM PRE-MIX 50 ML IV STA (21:12)
[2022-01-31] MEDS ORDERED: hydrALAZINE (APESOLINE) 20 MG/ML VIAL IV ONE (22:00)
--- NOTE | 2022-01-31 22:30 | Diagnostic Imaging Report ---
INDICATION: Right lower quadrant abdominal pain. TECHNIQUE: Multiple contiguous axial images were obtained through the abdomen and pelvis after the administration of intravenous contrast. All CT scans use one or more of the following dose optimizing techniques: automated exposure control, MA and/or KvP adjustment based on patient size and exam type or iterative reconstruction. COMPARISON made to prior CT abdomen and pelvis of 07/06/2021. The visualized portions of the lung bases show some atelectatic changes. There is no pleural fluid or free intraperitoneal air. A tiny cyst in the right lobe, otherwise normal. The spleen, adrenals, and pancreas are normal. The left kidney shows some chronic perinephric scarring which appears similar to the prior study. The right kidney shows hydronephrosis and hydroureter, down to the level of bladder. I do not see a definite obstructing stone at this time. This is a new finding however compared to the previous study. There is some periureteric edema. There is no retroperitoneal mass or adenopathy. There is prominent stool in the colon. There is no evidence of abscess. There is no adnexal lesion. IMPRESSION: Compared to the prior study, there is a new finding of right hydronephrosis and hydroureter. There is no overt obstructing stone. There is periureteric edema down to the bladder level. Differential diagnoses would include a recently passed stone or occult stone or other obstructing process in the distal ureter. There is chronic perinephric scarring in the left kidney. There is no abscess or overt bowel obstruction. Dictated by: Dictated on workstation # [id number]
[2022-01-31] MEDS ORDERED: CEPH500T PO (23:07)
[2022-01-31 23:23] VITALS: BP 157/95
[2022-02-01] MEDS ORDERED: FLUC150T PO (11:08)
== END 2022-01-31 23:46 | disposition home or self-care (01) ==
LOC: EDUNIT# 20:11 → ER 20:13
DX: N39.0 Urinary tract infection, site not specified (principal); I10 Essential (primary) hypertension; K56.41 Fecal impaction; Z79.899 Other long term (current) drug therapy; Z85.810 Personal history of malignant neoplasm of tongue; Z85.3 Personal history of malignant neoplasm of breast; Z85.528 Personal history of other malignant neoplasm of kidney; Z90.49 Acquired absence of other specified parts of digestive tract
CPT/HCPCS: 36415; 74177; 80053; 81000; 83690; 85025; 86141; 87077; 87088; 87186

== ENCOUNTER 2022-02-15 07:36 | Outpatient (CLI) | payer MEDICARE ==
[~2022-02-15] VITALS: Ht 167.6 cm; Wt 83.9 kg
[~2022-02-15 07:36] MED LIST changes: +CEPH500T PO; +FLUC150T PO
[2022-02-15] MEDS ORDERED: LISI10TA25 PO (09:36)
== END 2022-02-15 09:38 | disposition home or self-care (01) ==
LOC: PREOP 07:36
PROVIDERS: ATTEND Surgery
DX: Z01.818 Encounter for other preprocedural examination (principal)

== ENCOUNTER 2022-02-23 08:35 | Day surgery (SDC) | payer MEDICARE ==
[~2022-02-23] VITALS: Ht 167.6 cm; Wt 83.9 kg
[~2022-02-23 08:35] MED LIST changes: +LISI10TA25 PO
[2022-02-23] MEDS ORDERED: LACTATED RINGERS 1,000 ML IV STA (08:43)
[2022-02-23] MEDS ORDERED: HURRICAINE EXT TUBE (BENZOCAINE) XX PRN (08:45)
[2022-02-23 08:58] VITALS: BP 188/81
--- NOTE | 2022-02-23 09:08 | Progress Note-Pre Operative ---
Pre-Operative Progress Note H&P Reviewed The H&P was reviewed, patient examined and no changes noted. Time Seen by Provider: 09:06 Date H&P Reviewed: Feb 23, 2022 Time H&P Reviewed: 09:06 Pre-Operative Diagnosis: Gastric Ulcer EMA WARREN DO Feb 23, 2022 09:08
[2022-02-23] MEDS ORDERED: PROPOFOL INJECTION 50 ML IV ONE (09:45)
[2022-02-23 10:05] VITALS: BP 179/79
--- NOTE | 2022-02-23 10:06 | Progress Note-Post Operative ---
Post-Operative Progess Note Surgeon (s)/Spacer Type Bar And Segment (s) Surgeon EMA WARREN DO Spacer Type Bar And Segment: none Pre-Operative Diagnosis Gastric Ulcer Post-Operative Diagnosis mild gastritis mild esophagitis small 0.5cm hiatal hernia Procedure & Operative Findings Date of Procedure 02/23/22 Procedure Performed/Findings EGD with bx PROCEDURE NOTE: After informed consent was obtained, the patient was brought to the endoscopy suite, placed in bed in left lateral decubitus position. She was administered IV sedation by the FINAL TOUCH UP PAINTER who then monitored vitals the entire time, heart rate, blood pressure and pulse ox and the scope was inserted down the mouth through the esophagus into the stomach. On the way down, noted some mild esophagitis, took a picture, pushed into the stomach, pushed past the antrum into the duodenum. Duodenum looked good. Pulled back and did a biopsy of antrum and then retroflexed the scope. I did not see any gastric ulcer, did see a small 0.5cm hiatal hernia, took a picture of this and then pulled the scope into the GE junction. Next did a biopsy of the GE junction. Pushed the scope back into the stomach, suctioned all the air out of the stomach. At this point pulled the scope up the esophagus and out the mouth. The patient tolerated the procedure, and she recovered in endoscopy suite. Anesthesia Type IV sedation by FINAL TOUCH UP PAINTER Estimated Blood Loss Estimated blood loss (mL): scant Specimens/Packing Specimens Removed antral bx GE jxn bx EMA WARREN DO Feb 23, 2022 10:06
--- NOTE | 2022-02-23 10:07 | Endoscopy Discharge Instruct ---
Endo Procedure/Findings Findings 1.: Gastritis 2.: Hiatal Hernia 3.: Other Findings (mild esophagitis) Discharge Instructions - Activity: You might feel a little sleepy until tomorrow. This is due to the medicine you received to relax you. Until tomorrow, you should: NOT drive a car, operate machinery or power tools. NOT drink any alcoholic beverages. NOT make any important decisions or sign importortant papers. Do not return to work until tomorrow, unless otherwise instructed. Resume previous activities tomorrow. Diet: Start by taking liquids. If you tolerate liquids, advance to solid food. 1.: EGD in 3 years Notify Physician - If you experience excessive bleeding, unusual abdominal pain, fever, or chest pain, contact your doctor immediately. EMA WARREN DO Feb 23, 2022 10:07
[2022-02-23 10:10] VITALS: BP 152/76
[2022-02-23 10:15] VITALS: BP 179/79
--- NOTE | 2022-02-23 14:39 | Anesthesia-General Post-Op ---
MAC Patient Condition Mental Status/LOC: Same as Preop Cardiovascular: Satisfactory Nausea/Vomiting: Absent Respiratory: Satisfactory Pain: Controlled Complications: Absent Post Op Complications Complications None Follow Up Care/Instructions Patient Instructions None needed. Anesthesiology Discharge Order Discharge Order Patient is doing well, no complaints, stable vital signs, no apparent adverse anesthesia problems. No complications reported per nursing. HARLAN WALKER CRNA Feb 23, 2022 14:39
== END 2022-02-23 10:40 | disposition home or self-care (01) ==
LOC: ENDO 08:35
PROVIDERS: ATTEND Surgery
DX: K21.00 Gastro-esophageal reflux disease with esophagitis, without bleeding (principal); K44.9 Diaphragmatic hernia without obstruction or gangrene; K29.70 Gastritis, unspecified, without bleeding; K31.89 Other diseases of stomach and duodenum; E66.9 Obesity, unspecified; Z68.29 Body mass index [BMI] 29.0-29.9, adult; Z87.891 Personal history of nicotine dependence; Z87.11 Personal history of peptic ulcer disease
CPT/HCPCS: 82947; 88305

== ENCOUNTER 2022-03-27 14:15 | Outpatient (RCR) | payer MEDICARE ==
[2022-03-27 14:32] LABS: BASOPHILS % (AUTO) 0 % (0-10); EOSINOPHILS # (AUTO) 0.2 10^3/uL (0.0-0.3); EOSINOPHILS % (AUTO) 4 % (0-10); HEMATOCRIT 30 % (35-52); LYMPHOCYTES # (AUTO) 1.1 10^3/uL (1.0-4.0); LYMPHOCYTES % (AUTO) 23 % (12-44); MEAN CORPUSCULAR HEMOGLOBIN 23 pg (25-34); MEAN CORPUSCULAR HGB CONC 30 g/dL (32-36); MEAN CORPUSCULAR VOLUME 77 fL (80-99); MEAN PLATELET VOLUME 10.3 fL (9.0-12.2); MONOCYTES # (AUTO) 0.4 10^3/uL (0.0-1.0); MONOCYTES % (AUTO) 10 % (0-12); NEUTROPHILS # (AUTO) 2.9 10^3/uL (1.8-7.8); NEUTROPHILS % (AUTO) 63 % (42-75); PLATELET COUNT 287 10^3/uL (130-400); WHITE BLOOD COUNT 4.5 10^3/uL (4.3-11.0)
[2022-03-27 14:54] LABS: ALBUMIN 3.9 GM/DL (3.2-4.5); BILIRUBIN,TOTAL 0.3 MG/DL (0.1-1.0); CREATININE SERUM 0.83 MG/DL (0.60-1.30); POTASSIUM 4.1 MMOL/L (3.6-5.0); TOTAL PROTEIN 7.5 GM/DL (6.4-8.2)
== END 2022-04-05 | disposition home or self-care (01) ==
LOC: ONC 14:15
PROVIDERS: ATTEND Internal Medicine Hematology & Oncology
DX: C50.511 Malignant neoplasm of lower-outer quadrant of right female breast (principal); C02.9 Malignant neoplasm of tongue, unspecified; I10 Essential (primary) hypertension; E03.9 Hypothyroidism, unspecified; D50.9 Iron deficiency anemia, unspecified; J44.9 Chronic obstructive pulmonary disease, unspecified; E66.9 Obesity, unspecified
CPT/HCPCS: 80053; 82728; 83540; 83550; 85025; G0463; 36415; 99213

== ENCOUNTER 2022-05-04 09:10 | Outpatient (RCR) | payer MEDICARE ==
[2022-04-18 13:22] LABS: BASOPHILS % (AUTO) 1 % (0-10); EOSINOPHILS # (AUTO) 0.2 10^3/uL (0.0-0.3); EOSINOPHILS % (AUTO) 4 % (0-10); HEMATOCRIT 29 % (35-52); HEMOGLOBIN 8.6 g/dL (11.5-16.0); LYMPHOCYTES # (AUTO) 1.1 10^3/uL (1.0-4.0); LYMPHOCYTES % (AUTO) 25 % (12-44); MEAN CORPUSCULAR HEMOGLOBIN 22 pg (25-34); MEAN CORPUSCULAR HGB CONC 29 g/dL (32-36); MEAN CORPUSCULAR VOLUME 75 fL (80-99); MEAN PLATELET VOLUME 9.6 fL (9.0-12.2); MONOCYTES # (AUTO) 0.3 10^3/uL (0.0-1.0); MONOCYTES % (AUTO) 7 % (0-12); NEUTROPHILS # (AUTO) 2.9 10^3/uL (1.8-7.8); NEUTROPHILS % (AUTO) 63 % (42-75); PLATELET COUNT 260 10^3/uL (130-400); WHITE BLOOD COUNT 4.6 10^3/uL (4.3-11.0)
[2022-04-18 13:48] LABS: ALANINE AMINOTRANSFERASE < 6 U/L (0-55); ALBUMIN 4.5 GM/DL (3.2-4.5); ALKALINE PHOSPHATASE 85 U/L (40-136); BILIRUBIN,TOTAL 0.3 MG/DL (0.1-1.0); BUN/CREATININE RATIO 38; CALCIUM 11.7 MG/DL (8.5-10.1); CARBON DIOXIDE 37 MMOL/L (21-32); CHLORIDE 100 MMOL/L (98-107); CREATININE SERUM 0.85 MG/DL (0.60-1.30); GFR ESTIMATED 72; GLUCOSE 164 MG/DL (70-105); POTASSIUM 4.3 MMOL/L (3.6-5.0); SODIUM 139 MMOL/L (135-145); TOTAL PROTEIN 7.9 GM/DL (6.4-8.2)
[~2022-05-04 09:10] MED LIST changes: +FERRIC CARBOXYMALTOSE INJ 750 MG in NS (IVPB) 250 ML IV SCH
== END 2022-05-05 | disposition home or self-care (01) ==
LOC: ONC 09:10
PROVIDERS: ATTEND Internal Medicine Hematology & Oncology
DX: C50.511 Malignant neoplasm of lower-outer quadrant of right female breast (principal); C02.9 Malignant neoplasm of tongue, unspecified; I10 Essential (primary) hypertension; E03.9 Hypothyroidism, unspecified; D50.9 Iron deficiency anemia, unspecified; J44.9 Chronic obstructive pulmonary disease, unspecified; E66.9 Obesity, unspecified; J18.9 Pneumonia, unspecified organism; Z98.890 Other specified postprocedural states
CPT/HCPCS: 36415; 80053; 82274; 82728; 83540; 83550; 85025; 96365; 99213

== ENCOUNTER 2022-05-29 09:07 | Outpatient (RCR) | payer MEDICARE ==
[2022-05-23 12:00] LABS: BASOPHILS % (AUTO) 1 % (0-10); EOSINOPHILS # (AUTO) 0.2 10^3/uL (0.0-0.3); EOSINOPHILS % (AUTO) 4 % (0-10); HEMATOCRIT 36 % (35-52); HEMOGLOBIN 10.9 g/dL (11.5-16.0); LYMPHOCYTES # (AUTO) 0.9 10^3/uL (1.0-4.0); LYMPHOCYTES % (AUTO) 20 % (12-44); MEAN CORPUSCULAR HEMOGLOBIN 25 pg (25-34); MEAN CORPUSCULAR HGB CONC 30 g/dL (32-36); MEAN CORPUSCULAR VOLUME 80 fL (80-99); MONOCYTES # (AUTO) 0.2 10^3/uL (0.0-1.0); MONOCYTES % (AUTO) 6 % (0-12); NEUTROPHILS # (AUTO) 3.1 10^3/uL (1.8-7.8); NEUTROPHILS % (AUTO) 70 % (42-75); PLATELET COUNT 237 10^3/uL (130-400); WHITE BLOOD COUNT 4.4 10^3/uL (4.3-11.0)
[2022-05-23 12:28] LABS: ALBUMIN 3.8 GM/DL (3.2-4.5); BILIRUBIN,TOTAL 0.3 MG/DL (0.1-1.0); CALCIUM 9.1 MG/DL (8.5-10.1); CREATININE SERUM 0.8 MG/DL (0.60-1.30); POTASSIUM 4.2 MMOL/L (3.6-5.0)
== END 2022-06-05 | disposition home or self-care (01) ==
LOC: ONC 09:07
PROVIDERS: ATTEND Internal Medicine Hematology & Oncology
DX: C50.511 Malignant neoplasm of lower-outer quadrant of right female breast (principal); C02.9 Malignant neoplasm of tongue, unspecified; E03.9 Hypothyroidism, unspecified; D50.9 Iron deficiency anemia, unspecified; I10 Essential (primary) hypertension; J44.9 Chronic obstructive pulmonary disease, unspecified; E66.9 Obesity, unspecified; Z98.890 Other specified postprocedural states
CPT/HCPCS: 36415; 80053; 82728; 83540; 83550; 85025; 96365; 99213

== ENCOUNTER 2022-07-26 09:44 | Outpatient (RCR) | payer MEDICARE ==
[2022-07-19 15:51] LABS: BASOPHILS % (AUTO) 1 % (0-10); EOSINOPHILS # (AUTO) 0.1 10^3/uL (0.0-0.3); EOSINOPHILS % (AUTO) 2 % (0-10); HEMATOCRIT 39 % (35-52); HEMOGLOBIN 13.1 g/dL (11.5-16.0); LYMPHOCYTES # (AUTO) 1.4 10^3/uL (1.0-4.0); LYMPHOCYTES % (AUTO) 28 % (12-44); MEAN CORPUSCULAR HEMOGLOBIN 28 pg (25-34); MEAN CORPUSCULAR HGB CONC 33 g/dL (32-36); MEAN CORPUSCULAR VOLUME 84 fL (80-99); MEAN PLATELET VOLUME 9.4 fL (9.0-12.2); MONOCYTES # (AUTO) 0.3 10^3/uL (0.0-1.0); MONOCYTES % (AUTO) 7 % (0-12); NEUTROPHILS # (AUTO) 3.1 10^3/uL (1.8-7.8); NEUTROPHILS % (AUTO) 62 % (42-75); PLATELET COUNT 247 10^3/uL (130-400)
[2022-07-19 16:08] LABS: ALBUMIN 4.1 GM/DL (3.2-4.5); BILIRUBIN,TOTAL 0.4 MG/DL (0.1-1.0); CALCIUM 9.6 MG/DL (8.5-10.1); CREATININE SERUM 1.23 MG/DL (0.60-1.30)
[~2022-07-26 09:44] MED LIST changes: -FERRIC CARBOXYMALTOSE INJ 750 MG in NS (IVPB) 250 ML IV SCH
== END 2022-08-05 | disposition home or self-care (01) ==
LOC: ONC 09:44
PROVIDERS: ATTEND Internal Medicine Hematology & Oncology
DX: C50.511 Malignant neoplasm of lower-outer quadrant of right female breast (principal); C02.9 Malignant neoplasm of tongue, unspecified; E03.9 Hypothyroidism, unspecified; D50.9 Iron deficiency anemia, unspecified; I10 Essential (primary) hypertension; J44.9 Chronic obstructive pulmonary disease, unspecified; E66.9 Obesity, unspecified; J18.9 Pneumonia, unspecified organism; Z98.890 Other specified postprocedural states
CPT/HCPCS: 36415; 80053; 82728; 83540; 83550; 85025; 99213

== ENCOUNTER 2022-10-26 09:30 | Outpatient (RCR) | payer MEDICARE ==
[2022-10-26 09:45] LABS: BASOPHILS % (AUTO) 1 % (0-10); EOSINOPHILS # (AUTO) 0.1 10^3/uL (0.0-0.3); EOSINOPHILS % (AUTO) 4 % (0-10); HEMATOCRIT 37 % (35-52); HEMOGLOBIN 12.2 g/dL (11.5-16.0); LYMPHOCYTES % (AUTO) 26 % (12-44); MEAN CORPUSCULAR HEMOGLOBIN 28 pg (25-34); MEAN CORPUSCULAR HGB CONC 33 g/dL (32-36); MEAN CORPUSCULAR VOLUME 86 fL (80-99); MEAN PLATELET VOLUME 10.2 fL (9.0-12.2); MONOCYTES # (AUTO) 0.2 10^3/uL (0.0-1.0); MONOCYTES % (AUTO) 6 % (0-12); NEUTROPHILS # (AUTO) 2.4 10^3/uL (1.8-7.8); NEUTROPHILS % (AUTO) 63 % (42-75); PLATELET COUNT 205 10^3/uL (130-400); WHITE BLOOD COUNT 3.9 10^3/uL (4.3-11.0)
[2022-10-26 10:06] LABS: ALBUMIN 4.1 GM/DL (3.2-4.5); BILIRUBIN,TOTAL 0.3 MG/DL (0.1-1.0); CALCIUM 9.6 MG/DL (8.5-10.1); CREATININE SERUM 0.95 MG/DL (0.60-1.30); POTASSIUM 4.1 MMOL/L (3.6-5.0); TOTAL PROTEIN 7.4 GM/DL (6.4-8.2)
== END 2022-11-03 | disposition home or self-care (01) ==
LOC: ONC 09:30
PROVIDERS: ATTEND Internal Medicine Hematology & Oncology
DX: C50.511 Malignant neoplasm of lower-outer quadrant of right female breast (principal); C02.9 Malignant neoplasm of tongue, unspecified; E03.9 Hypothyroidism, unspecified; D50.9 Iron deficiency anemia, unspecified; I10 Essential (primary) hypertension; J44.9 Chronic obstructive pulmonary disease, unspecified; E66.9 Obesity, unspecified; J18.9 Pneumonia, unspecified organism; Z98.890 Other specified postprocedural states
CPT/HCPCS: 36415; 80053; 82728; 83540; 83550; 85025

== ENCOUNTER 2023-01-25 10:19 | Outpatient (RCR) | payer MEDICARE ==
[2023-01-23 11:16] LABS: BASOPHILS % (AUTO) 1 % (0-10); EOSINOPHILS # (AUTO) 0.2 10^3/uL (0.0-0.3); EOSINOPHILS % (AUTO) 4 % (0-10); HEMATOCRIT 31 % (35-52); HEMOGLOBIN 9.9 g/dL (11.5-16.0); LYMPHOCYTES # (AUTO) 1.1 10^3/uL (1.0-4.0); LYMPHOCYTES % (AUTO) 25 % (12-44); MEAN CORPUSCULAR HEMOGLOBIN 27 pg (25-34); MEAN CORPUSCULAR HGB CONC 33 g/dL (32-36); MEAN CORPUSCULAR VOLUME 83 fL (80-99); MEAN PLATELET VOLUME 10.3 fL (9.0-12.2); MONOCYTES # (AUTO) 0.3 10^3/uL (0.0-1.0); MONOCYTES % (AUTO) 7 % (0-12); NEUTROPHILS # (AUTO) 2.9 10^3/uL (1.8-7.8); NEUTROPHILS % (AUTO) 63 % (42-75); PLATELET COUNT 226 10^3/uL (130-400); WHITE BLOOD COUNT 4.5 10^3/uL (4.3-11.0)
[2023-01-23 11:34] LABS: ALBUMIN 3.9 GM/DL (3.2-4.5); BILIRUBIN,TOTAL 0.3 MG/DL (0.1-1.0); CALCIUM 9.2 MG/DL (8.5-10.1); CREATININE SERUM 0.84 MG/DL (0.60-1.30); POTASSIUM 4.6 MMOL/L (3.6-5.0); TOTAL PROTEIN 7.3 GM/DL (6.4-8.2)
== END 2023-02-02 | disposition home or self-care (01) ==
LOC: ONC 10:19
PROVIDERS: ATTEND Internal Medicine Hematology & Oncology
DX: C50.511 Malignant neoplasm of lower-outer quadrant of right female breast (principal); C02.9 Malignant neoplasm of tongue, unspecified; E03.9 Hypothyroidism, unspecified; D50.9 Iron deficiency anemia, unspecified; I10 Essential (primary) hypertension; J44.9 Chronic obstructive pulmonary disease, unspecified; E66.9 Obesity, unspecified; J18.9 Pneumonia, unspecified organism; Z98.890 Other specified postprocedural states
CPT/HCPCS: 36415; 80053; 82728; 83540; 83550; 85025

== ENCOUNTER 2023-02-07 07:02 | Outpatient (CLI) | payer MEDICARE ==
[~2023-02-07] VITALS: Ht 167 cm; Wt 86.0 kg
[2023-02-07] MEDS ORDERED: AMLO-250 PO (09:44)
[2023-02-07] MEDS ORDERED: PANT40TA52 PO (09:45)
[2023-02-07] MEDS ORDERED: LEVO175C2 PO (09:45)
== END 2023-02-07 10:46 | disposition home or self-care (01) ==
LOC: PREOP 07:02
PROVIDERS: ATTEND Surgery
DX: Z01.818 Encounter for other preprocedural examination (principal)

== ENCOUNTER 2023-02-12 09:37 | Day surgery (SDC) | payer MEDICARE ==
[~2023-02-12] VITALS: Ht 167 cm; Wt 86.0 kg
[~2023-02-12 09:37] MED LIST changes: +AMLO-250 PO; +LEVO175C2 PO; +PANT40TA52 PO
[2023-02-12] MEDS ORDERED: LACTATED RINGERS 1,000 ML IV STA (09:40)
[2023-02-12] MEDS ORDERED: HURRICAINE EXT TUBE (BENZOCAINE) XX PRN (09:45)
[2023-02-12 10:18] VITALS: BP 161/77
--- NOTE | 2023-02-12 10:27 | Progress Note-Pre Operative ---
Pre-Operative Progress Note Date of Available H&P: Feb 01, 2023 Date H&P Reviewed: Feb 12, 2023 Time H&P Reviewed: 10:25 History & Physical: H&P Reviewed, Patient Examed, No changes noted Pre-Operative Diagnosis: Anemia, Hx of Gastric Ulcer EMA WARREN DO Feb 12, 2023 10:27
[2023-02-12] MEDS ORDERED: PROPOFOL INJECTION 50 ML IV ONE (10:44)
--- NOTE | 2023-02-12 11:33 | Anesthesia-General Post-Op ---
MAC Patient Condition Mental Status/LOC: Same as Preop Cardiovascular: Satisfactory Nausea/Vomiting: Absent Respiratory: Satisfactory Pain: Controlled Complications: Absent Post Op Complications Complications None Follow Up Care/Instructions Patient Instructions None needed. Anesthesiology Discharge Order Discharge Order Patient is doing well, no complaints, stable vital signs, no apparent adverse anesthesia problems. No complications reported per nursing. AARON JIMENEZ CRNA Feb 12, 2023 11:33
[2023-02-12 11:35] VITALS: BP 209/84
--- NOTE | 2023-02-12 11:38 | Progress Note-Post Operative ---
Post-Operative Progess Note Surgeon (s)/Sales Strategy Manager (s) Surgeon EMA WARREN DO Sales Strategy Manager: [employer] Student Pre-Operative Diagnosis Anemia, Hx of Gastric Ulcer Post-Operative Diagnosis Gastric ulcer Hiatal hernia Polyp poor prep Diverticula int hemorrhoids Procedure & Operative Findings Date of Procedure 02/12/23 Procedure Performed/Findings EGD with bx Colonoscopy with snare PROCEDURE NOTE: After informed consent was obtained, the patient was brought to the endoscopy suite, placed in bed in left lateral decubitus position. She was administered IV sedation by the BEVEL POLISHER who then monitored vitals the entire time, heart rate, blood pressure and pulse ox and the scope was inserted down the mouth through the esophagus into the stomach. On the way down, noted some mild esophagitis, took a picture, pushed into the stomach and noted blood clots near the antrum. I also saw what looked like ulcer with healing scab and elected to do a biopsy of this. I then pushed past the antrum into the duodenum; duodenum looked good. Pulled back and then retroflexed the scope, saw a small hiatal hernia and took a picture of this. I then pulled the scope into the GE junction and did a biopsy of the GE junction. Pushed the scope back into the stomach, suctioned all the air out of the stomach. At this point pulled the scope up the esophagus and out the mouth. Switched camera, switched gloves, went down below and started the colonoscopy. Immediately upon entering encountered liquid fecal material and vegetable matter; making it impossible to suction everything out. Pushed all the way to about 150 cm and pushed into the cecum, took a picture of appendiceal orifice and noted the ileocecal valve. Then slowly withdrew the scope insufflating to look circumferentially at the tejeda starting in the cecum, up the ascending colon to the hepatic flexure, then down the transverse colon, splenic flexure, into the descending colon down in the sigmoid and then into the rectal vault. I saw large diverticula in the left colon and took a picture; as well as, a few in adriana ascending colon. In the rectum I found a polyp and removed it with the snare. Finally retroflexed the scope and took a picture of the internal hemorrhoids. The patient tolerated the procedure and she recovered in the endoscopy suite. Recommended for repeat colonoscopy in 1 -2 months because of the poor prep. Anesthesia Type IV sedation by BEVEL POLISHER Estimated Blood Loss Estimated blood loss (mL): scant Specimens/Packing Specimens Removed antral ulcer bx GE jxn bx rectal polyp EMA WARREN DO Feb 12, 2023 11:38
--- NOTE | 2023-02-12 11:39 | Endoscopy Discharge Instruct ---
Endo Procedure/Findings Findings 1.: Gastric Ulcer 2.: Hiatal Hernia 3.: Polyp 4.: Diverticulosis, Internal Hemorrhoids, Other Findings (poor prep) Discharge Instructions - Activity: You might feel a little sleepy until tomorrow. This is due to the medicine you received to relax you. Until tomorrow, you should: NOT drive a car, operate machinery or power tools. NOT drink any alcoholic beverages. NOT make any important decisions or sign importortant papers. Do not return to work until tomorrow, unless otherwise instructed. Resume previous activities tomorrow. Diet: Start by taking liquids. If you tolerate liquids, advance to solid food. 1.: EGD in 6-8 weeks 2.: Other Recommendation (colonoscopy when repeating EGD) Notify Physician - If you experience excessive bleeding, unusual abdominal pain, fever, or chest pain, contact your doctor immediately. Follow-Up: Other Follow up in my office in one week EMA WARREN DO Feb 12, 2023 11:39
[2023-02-12 11:50] VITALS: BP 203/98
[2023-02-12 12:15] VITALS: BP 181/88
[2023-02-12 12:35] VITALS: BP 181/88
== END 2023-02-12 12:35 | disposition home or self-care (01) ==
LOC: ENDO 09:37
PROVIDERS: ATTEND Surgery
DX: K29.01 Acute gastritis with bleeding (principal); K29.51 Unspecified chronic gastritis with bleeding; K20.90 Esophagitis, unspecified without bleeding; K62.1 Rectal polyp; K57.30 Diverticulosis of large intestine without perforation or abscess without bleeding; K64.8 Other hemorrhoids; K44.9 Diaphragmatic hernia without obstruction or gangrene; D64.9 Anemia, unspecified; E66.9 Obesity, unspecified; Z68.30 Body mass index [BMI] 30.0-30.9, adult; Z87.891 Personal history of nicotine dependence
CPT/HCPCS: 82947

== ENCOUNTER 2023-02-22 10:41 | Outpatient (RCR) | payer MEDICARE ==
[2023-02-20 14:08] LABS: BASOPHILS % (AUTO) 1 % (0-10); EOSINOPHILS # (AUTO) 0.2 10^3/uL (0.0-0.3); EOSINOPHILS % (AUTO) 4 % (0-10); HEMATOCRIT 31 % (35-52); HEMOGLOBIN 9.5 g/dL (11.5-16.0); LYMPHOCYTES # (AUTO) 1.1 10^3/uL (1.0-4.0); LYMPHOCYTES % (AUTO) 23 % (12-44); MEAN CORPUSCULAR HEMOGLOBIN 25 pg (25-34); MEAN CORPUSCULAR HGB CONC 31 g/dL (32-36); MEAN CORPUSCULAR VOLUME 81 fL (80-99); MEAN PLATELET VOLUME 10.3 fL (9.0-12.2); MONOCYTES # (AUTO) 0.3 10^3/uL (0.0-1.0); MONOCYTES % (AUTO) 7 % (0-12); NEUTROPHILS # (AUTO) 3.1 10^3/uL (1.8-7.8); NEUTROPHILS % (AUTO) 65 % (42-75); PLATELET COUNT 262 10^3/uL (130-400); WHITE BLOOD COUNT 4.8 10^3/uL (4.3-11.0)
[2023-02-20 14:40] LABS: BILIRUBIN,TOTAL 0.3 MG/DL (0.1-1.0); CALCIUM 9.1 MG/DL (8.5-10.1); CREATININE SERUM 0.83 MG/DL (0.60-1.30); POTASSIUM 4.5 MMOL/L (3.6-5.0); TOTAL PROTEIN 7.5 GM/DL (6.4-8.2)
== END 2023-03-05 | disposition home or self-care (01) ==
LOC: ONC 10:41
PROVIDERS: ATTEND Internal Medicine Hematology & Oncology
DX: C50.511 Malignant neoplasm of lower-outer quadrant of right female breast (principal); C02.9 Malignant neoplasm of tongue, unspecified; E03.9 Hypothyroidism, unspecified; D50.9 Iron deficiency anemia, unspecified; I10 Essential (primary) hypertension; E66.9 Obesity, unspecified; Z98.890 Other specified postprocedural states; K57.90 Diverticulosis of intestine, part unspecified, without perforation or abscess without bleeding; K44.9 Diaphragmatic hernia without obstruction or gangrene
CPT/HCPCS: 36415; 80053; 82728; 83540; 83550; 85025

== ENCOUNTER → 2023-04-05 | Outpatient (RCR) | payer MEDICARE ==
[2023-04-02 14:50] LABS: BASOPHILS % (AUTO) 0 % (0-10); EOSINOPHILS # (AUTO) 0.2 10^3/uL (0.0-0.3); EOSINOPHILS % (AUTO) 4 % (0-10); HEMATOCRIT 38 % (35-52); HEMOGLOBIN 11.8 g/dL (11.5-16.0); LYMPHOCYTES # (AUTO) 1.1 X 10^3 (1.0-4.0); LYMPHOCYTES % (AUTO) 25 % (12-44); MEAN CORPUSCULAR HEMOGLOBIN 27 pg (25-34); MEAN CORPUSCULAR HGB CONC 32 g/dL (32-36); MEAN CORPUSCULAR VOLUME 85 fL (80-99); MEAN PLATELET VOLUME 9.6 fL (9.0-12.2); MONOCYTES # (AUTO) 0.3 X 10^3 (0.0-1.0); MONOCYTES % (AUTO) 6 % (0-12); NEUTROPHILS % (AUTO) 64 % (42-75); PLATELET COUNT 229 10^3/uL (130-400); WHITE BLOOD COUNT 4.6 10^3/uL (4.3-11.0)
[2023-04-02 15:09] LABS: ALBUMIN 4.3 GM/DL (3.2-4.5); BILIRUBIN,TOTAL 0.3 MG/DL (0.1-1.0); CALCIUM 9.5 MG/DL (8.5-10.1); CREATININE SERUM 0.81 MG/DL (0.60-1.30); POTASSIUM 4.4 MMOL/L (3.6-5.0); TOTAL PROTEIN 7.6 GM/DL (6.4-8.2)
== END | disposition home or self-care (01) ==
LOC: ONC 04-02 14:21
PROVIDERS: ATTEND Internal Medicine Hematology & Oncology
DX: C50.511 Malignant neoplasm of lower-outer quadrant of right female breast (principal); C02.9 Malignant neoplasm of tongue, unspecified; I10 Essential (primary) hypertension; E66.9 Obesity, unspecified; D50.9 Iron deficiency anemia, unspecified; E03.9 Hypothyroidism, unspecified
CPT/HCPCS: 36415; 80053; 82728; 83540; 83550; 85025; 99214

== ENCOUNTER 2023-07-03 10:18 | Inpatient (IN) | payer MEDICARE ==
[~2023-07-03] VITALS: Ht 167.7 cm; Wt 81.1 kg
[2023-07-03 10:50] LABS: BASOPHILS % (AUTO) 0 % (0-10); EOSINOPHILS # (AUTO) 0.1 10^3/uL (0.0-0.3); EOSINOPHILS % (AUTO) 3 % (0-10); HEMATOCRIT 30 % (35-52); HEMOGLOBIN 9.2 g/dL (11.5-16.0); LYMPHOCYTES # (AUTO) 0.9 10^3/uL (1.0-4.0); LYMPHOCYTES % (AUTO) 17 % (12-44); MEAN CORPUSCULAR HEMOGLOBIN 26 pg (25-34); MEAN CORPUSCULAR HGB CONC 31 g/dL (32-36); MEAN CORPUSCULAR VOLUME 83 fL (80-99); MEAN PLATELET VOLUME 10.4 fL (9.0-12.2); MONOCYTES # (AUTO) 0.4 10^3/uL (0.0-1.0); MONOCYTES % (AUTO) 8 % (0-12); NEUTROPHILS # (AUTO) 3.6 10^3/uL (1.8-7.8); NEUTROPHILS % (AUTO) 71 % (42-75); PLATELET COUNT 266 10^3/uL (130-400)
--- NOTE | 2023-07-03 10:53 | ED General ---
General Chief Complaint: Cough/Cold/Flu Symptoms Stated Complaint: CHEST CONGESTION | COUGH Nursing Triage Note: PT TO RM 9 PT CO OF COLD COUGH FOR APPROX 6 DAYS, NOT GETTING ANY BETTER. DENIES FEVERS. PT WEARS O2 PRN AT HOME BUT HAS BEEN WEARING IT ALOT MORE. Source of Information: Patient, Other (Phone report from Dr. Barrow) Exam Limitations: No Limitations History of Present Illness Date Seen by Provider: Jul 03, 2023 Time Seen by Provider: 10:25 Initial Comments Mrs. Trotter is a 78-year-old woman who presents to the emergency room from Dr. Barrow's office with concerns about shortness of air and hypoxia. She was noted to have an oxygen saturation of 82% with exertion. She has been using supplemental oxygen at 2 to 3 L as needed at home. She previously was using this only at night but now requires it during the day as well. Dr. Barrow notes that she normally is not hypoxic on room air during her clinic visits. During assessment she was noted to have an oxygen saturation of 91% on 3 L by nasal cannula. She denies any history of DVT or pulmonary embolus. She is not anticoagulated. Shortness of breath has been present for about 6 days. In addition she has had some mild cough and mucus production. This started before Thanksgiving. She skipped Thanksgiving dinner with her family because of the sy mptoms. She denies any leg swelling or pain. Patient has a history of multiple cancers including renal, neck, and esophageal cancers. [facility] Allergies and Home Medications Allergies Coded Allergies: adhesive tape (Unverified Allergy, Unknown, 02/15/22) Patient Home Medication List Home Medication List Reviewed: Yes Amlodipine Besylate (Amlodipine Besylate) 5 Mg Tablet, 5 MG PO DAILY, (Reported) Entered as Reported by: Noreen Das on 02/07/23 7311 Last Action: Reviewed Docusate Sodium (Stool Softener) 100 Mg Capsule, 100 MG PO DAILY, (Reported) Entered as Reported by: CHELA ANDERSON on 04/20/21 1046 Last Action: Reviewed Famotidine (Acid Recycling Tech (FAMOTIDINE)) 20 Mg Tablet, 20 MG PO HS PRN for HEARTBURN, (Reported) Entered as Reported by: CHELA ANDERSON on 07/04/23 1532 Last Action: Reviewed Gemfibrozil (Gemfibrozil) 600 Mg Tablet, 600 MG PO BID, (Reported) Entered as Reported by: MARIANA DOUGHERTY on 08/01/21 1017 Last Action: Reviewed Levothyroxine Sodium (Levothyroxine Sodium) 175 Mcg Tablet, 175 MCG PO DAILY, (Reported) Entered as Reported by: CHELA ANDERSON on 07/04/23 153 Last Action: Reviewed Lisinopril (Lisinopril) 20 Mg Tablet, 20 MG PO DAILY, (Reported) Entered as Reported by: KIARA GÓMEZ on 07/03/23 1651 Last Action: Reviewed Metformin HCl (Metformin HCl) 500 Mg Tablet, 1,000 MG PO BID, (Reported) Entered as Reported by: CHELA ANDERSON on 07/04/23 153 Last Action: Reviewed Simvastatin (Simvastatin) 20 Mg Tablet, 20 MG PO HS, (Reported) Entered as Reported by: CHELA ANDERSON on 04/20/21 1046 Last Action: Reviewed Discontinued Medications Levothyroxine Sodium (Levothyroxine) 175 Mcg Capsule, 175 MCG PO DAILY, (Reported) Discontinued Reason: No Longer Taking Entered as Reported by: Noreen Das on 02/07/23 0945 Last Action: Discontinued Lisinopril (Lisinopril) 10 Mg Tablet, 10 MG PO DAILY, (Reported) Discontinued Reason: No Longer Taking Entered as Reported by: GABE MARTI on 02/15/22 0936 Last Action: Discontinued Metformin HCl (Metformin HCl) 1,000 Mg Tablet, 1,000 MG PO BID, (Reported) Discontinued Reason: No Longer Taking Entered as Reported by: MARIANA DOUGHERTY on 08/01/21 1017 Last Action: Discontinued Pantoprazole Sodium (Pantoprazole Sodium) 40 Mg Tablet.dr, 40 MG PO DAILY, (R eported) Discontinued Reason: No Longer Taking Entered as Reported by: Noreen Das on 02/07/23 0945 Last Action: Discontinued Review of Systems Review of Systems Constitutional: see HPI, malaise, weakness EENTM: no symptoms reported Respiratory: see HPI Cardiovascular: no symptoms reported; No chest pain Gastrointestinal: no symptoms reported Genitourinary: no symptoms reported : No Musculoskeletal: no symptoms reported Skin: no symptoms reported Psychiatric/Neurological: No Symptoms Reported Hematologic/Lymphatic: No Symptoms Reported Immunological/Allergic: no symptoms reported Past Rdcmfbw-Stwzzu-Npplsu Hx Patient Social History Tobacco Use?: No Smoking Status: Former Smoker Substance use?: No Alcohol Use?: No Pt feels they are or have been: No Immunizations Up To Date Influenza Vaccine Up-to-Date: Yes; Up-to-Date First/Initial COVID19 Vaccinat: OCTOBER 2020 Second COVID19 Vaccination Jj: NOVEMBER 2020 Third COVID19 Vaccination Date: OCTOBER 2020 Seasonal Allergies Seasonal Allergies: Yes (MILD) Past Medical History Surgery/Hospitalization HX: BREAST CA, THROAT CA, NECK CA, GB, COPD, DIABETES,HYPOTHYROIDISM, HTN, Surgeries: Yes (KIDNEY TUMOR REMOVED, TUMOR FROM THROAT W/LYMPH NODES, radical neck dissect) Abdominal (Feeding tube inserted and removed), Gallbladder, Lumpectomy, Renal (Renal cancer resection) Respiratory: Yes (APR 2021- PNEUMONIA, WEAR O2 AT NIGHT) Pneumonia Currently Using CPAP: No Cardiac: Yes High Cholesterol, Hypertension Neurological: No : No Reproductive Disorders: No Female Reproductive Disorders: Denies Sexually Transmitted Disease: No HIV/AIDS: No Genitourinary: Yes (KIDNEY MASS-REMOVED) Kidney Stones Gastrointestinal: Yes Gastroesophageal Reflux Musculoskeletal: Yes (BACK/HIP PAIN) Arthritis Endocrine: Yes Hypothyroidsim, Diabetes, Non-Insulin dep HEENT: No (GLASSES, DENTURES) Cancer: Yes Breast, Esophageal Did You Recieve Any Treatments: Yes What Type of Treatment Did You: Chemotherapy, Radiation, Surgical Intervention Psychosocial: No Integumentary: No Blood Disorders: No Adverse Reaction/Blood Tranf: Yes (NO REACTION) Family Medical History No Pertinent Family Hx Physical Exam Vital Signs Vital Signs - First Documented 07/03/23 10:25 Temp 36.6 Pulse 96 Resp 21 B/P (MAP) 183/95 (124) Pulse Ox 94 O2 Delivery Nasal Cannula O2 Flow Rate 3.00 Capillary Refill : Less Than 3 Seconds Height, Weight, BMI Height: 5'6.00" Weight: 192lbs. 0.0oz. 87.392475qk; 30.83 BMI Method:Stated General Appearance: No Apparent Distress, WD/WN HEENT: PERRL/EOMI, Normal ENT Inspection Neck: Normal Inspection; No JVD Respiratory: No Accessory Muscle Use, No Respiratory Distress; No Crackles; Wheezing (Mild) Cardiovascular: Regular Rate, Rhythm, No Edema, No Murmur Gastrointestinal: Normal Bowel Sounds, Non Tender, Soft Extremity: Normal Inspection, Non Tender, No Calf Tenderness, No Pedal Edema Neurologic/Psychiatric: Alert, Oriented x3, No Motor/Sensory Deficits, Normal Mood/Affect Skin: Normal Color, Warm/Dry Progress/Results/Core Measures Suspected Sepsis SIRS Temperature: Pulse: 96 Respiratory Rate: 21 Laboratory Tests 07/03/23 10:35: White Blood Count 5.0 Blood Pressure 183 /95 Mean: 124 Laboratory Tests 07/03/23 10:35: Creatinine 0.82, INR Comment 1.0, Platelet Count 266, Total Bilirubin 0.2 Results/Orders Lab Results Laboratory Tests Test 07/03/23 10:35 07/03/23 10:40 Range/Units White Blood Count 5.0 4.3-11.0 10^3/uL Red Blood Count 3.57 L 3.80-5.11 10^6/uL Hemoglobin 9.2 L 11.5-16.0 g/dL Hematocrit 30 L 35-52 % Mean Corpuscular Volume 83 80-99 fL Mean Corpuscular Hemoglobin 26 25-34 pg Mean Corpuscular Hemoglobin Concent 31 L 32-36 g/dL Red Cell Distribution Width 15.7 H 10.0-14.5 % Platelet Count 266 130-400 10^3/uL Mean Platelet Volume 10.4 9.0-12.2 fL Immature Granulocyte % (Auto) 1 % Neutrophils (%) (Auto) 71 42-75 % Lymphocytes (%) (Auto) 17 12-44 % Monocytes (%) (Auto) 8 0-12 % Eosinophils (%) (Auto) 3 0-10 % Basophils (%) (Auto) 0 0-10 % Neutrophils # (Auto) 3.6 1.8-7.8 10^3/uL Lymphocytes # (Auto) 0.9 L 1.0-4.0 10^3/uL Monocytes # (Auto) 0.4 0.0-1.0 10^3/uL Eosinophils # (Auto) 0.1 0.0-0.3 10^3/uL Basophils # (Auto) 0.0 0.0-0.1 10^3/uL Immature Granulocyte # (Auto) 0.1 0.0-0.1 10^3/uL Prothrombin Time 14.0 12.2-14.7 SEC INR Comment 1.0 0.8-1.4 Activated Partial Thromboplast Time 41 H 24-35 SEC D-Dimer 1.13 H 0.00-0.49 UG/ML Sodium Level 136 135-145 MMOL/L Potassium Level 4.2 3.6-5.0 MMOL/L Chloride Level 95 L 98-107 MMOL/L Carbon Dioxide Level 29 21-32 MMOL/L Anion Gap 12 5-14 MMOL/L Blood Urea Nitrogen 16 7-18 MG/DL Creatinine 0.82 0.60-1.30 MG/DL Estimat Glomerular Filtration Rate 74 BUN/Creatinine Ratio 20 Glucose Level 137 H 70-105 MG/DL Calcium Level 9.5 8.5-10.1 MG/DL Corrected Calcium 9.7 8.5-10.1 MG/DL Magnesium Level 1.6 1.6-2.4 MG/DL Total Bilirubin 0.2 0.1-1.0 MG/DL Aspartate Amino Transf (AST/SGOT) 14 5-34 U/L Alanine Aminotransferase (ALT/SGPT) 8 0-55 U/L Alkaline Phosphatase 113 40-136 U/L Myoglobin 48.4 10.0-92.0 NG/ML Troponin I < 0.028 <0.028 NG/ML C-Reactive Protein High Sensitivity 2.89 H 0.00-0.50 MG/DL B-Type Natriuretic Peptide 80.8 <100.0 PG/ML Total Protein 7.6 6.4-8.2 GM/DL Albumin 3.8 3.2-4.5 GM/DL Influenza Type A (RT-PCR) Not Detected Not Detecte Influenza Type B (RT-PCR) Not Detected Not Detecte SARS-CoV-2 RNA (RT-PCR) Detected H Not Detecte My Orders Orders - EDMOND RUSSO MD Cbc And Automated Diff (07/03/23 10:25) Magnesium (07/03/23 10:25) Chest 1 View, Ap/Pa Only (07/03/23 10:25) Ekg Tracing (07/03/23 10:25) Comprehensive Metabolic Panel (07/03/23 10:25) Myoglobin Serum (07/03/23 10:25) Protime With Inr (07/03/23 10:25) Partial Thromboplastin Time (07/03/23 10:25) O2 (07/03/23 10:25) Monitor-Rhythm Ecg Trace Only (07/03/23 10:25) Lipid Panel (07/04/23 06:00) Ed Iv/Invasive Line Start (07/03/23 10:25) Bnp [place] (07/03/23 10:25) Troponin I [place] (07/03/23 10:25) Hs C Reactive Protein (07/03/23 10:25) Covid 19 Inhouse Test (07/03/23 10:25) Influenza A And B By Pcr (07/03/23 10:25) Fibrin Degradation Products (07/03/23 11:20) Ct Angio Chest W (R/O Pe) (07/03/23 11:37) Iohexol Injection (Omnipaque 350 Mg/Ml 1 (07/03/23 12:00) Ns (Ivpb) 100 Ml (Sodium Chloride 0.9% 1 (07/03/23 12:00) Dexamethasone Injection (Dexamethasone (07/03/23 12:00) Medications Given in ED Current Medications Medications Dose Ordered Sig/Gilda Route Start Time Stop Time Status Last Admin Dose Admin Iohexol 100 ml ONCE ONCE IV 07/03/23 12:00 07/03/23 12:01 DC 07/03/23 12:07 74 ML Sodium Chloride 100 ml ONCE ONCE IV 07/03/23 12:00 07/03/23 12:01 DC 07/03/23 12:07 80 ML Vital Signs/I&O 07/03/23 10:25 Temp 36.6 Pulse 96 Resp 21 B/P (MAP) 183/95 (124) Pulse Ox 94 O2 Delivery Nasal Cannula O2 Flow Rate 3.00 Capillary Refill : Less Than 3 Seconds Blood Pressure Mean: 124 Progress Note : Progress Note Orders were placed at [address] Barrow's report. Patient was interviewed and examined at 1125. Labs were obtained, reviewed, and interpreted by me. CBC revealed moderate anemia with a hemoglobin of 9.2. CMP revealed no major abnormalities. Glucose was mildly elevated at 136. Troponin did was negative. CRP was mildly elevated at 2.89. D-dimer was elevated at 1.13 and was followed by CT angiogram of the chest. BNP was normal at 80.8. Influenza and COVID swab was obtained and was positive for COVID-19. Labs were otherwise negative for clinically relevant abnormalities. CT angiogram was negative for pulmonary embolus. Other findings were noted as below in radiologist's report. Chest x-ray was also reviewed as noted in radiologist report below. Patient required continued oxygen support. She did have some mild wheezing which was treated with albuterol by inhaler. CODE STATUS was reviewed with patient and she selects full code. Dexamethasone 6 mg IV was given for initial treatment of hypoxia in COVID-19. Case was discussed with Dr. Pierre, admitting hospitalist. She excepted the admission. ECG Initial ECG Impression Date: Jul 03, 2023 Initial ECG Impression Time: 10:33 Initial ECG Rate: 91 Initial ECG Rhythm: Normal Sinus Initial ECG Impression: Normal Comment Normal sinus rhythm with no ST elevation or depression. No abnormal intervals or axis deviation. Diagnostic Imaging Diagonstic Imaging: CT Plain Films/CT/US/NM/MRI: chest Comments NAME: JACKIE TROTTER [facility] REC#: [id number] PT STATUS: ADM IN : 1945 PHYSICIAN: EDMOND RUSSO MD ADMIT DATE: 07/03/23 Signed Date of Exam:07/03/23 CT ANGIO CHEST W (R/O PE) INDICATION: COVID positive patient. Elevated D-dimer. Hypoxia. COMPARISON: None TECHNIQUE: Routine postcontrast CTA of the chest was performed. Contrast was injected intravenously in time for optimal opacification of the pulmonary arteries. Multiplanar and 3-D reformats were also created and reviewed. Auto Exposure Controls were utilized during the CT exam to meet ALARA standards for radiation dose reduction. FINDINGS: No abnormal intraluminal filling defect is seen within the pulmonary arteries to the 1st subsegmental division. Thoracic aorta shows mild scattered calcified and noncalcified atherosclerotic disease, but by NASCET criteria, there is no focal significant stenosis. There is no evidence of dissection or aneurysm. The heart is mildly enlarged. There is no large pericardial effusion. There is mild to moderate scattered calcified coronary atherosclerosis. Bulky calcifications of the mitral valve are also noted. Several mildly prominent appearing hilar and mediastinal lymph nodes are identified. The largest is seen within the right hilar region and measures 1.9 cm. Evaluation of the lung sanches demonstrates mild right effusion and trace left effusion. There is associated dependent atelectasis. More patchy airspace densities are also noted within the bilateral lower lobes as well as the right middle lobe and are concerning for areas of infiltrate. Upper lung sanches show septal thickening with areas of groundglass density. Multiple pulmonary nodules are also noted. The largest of these is seen within the anterior medial left apex and measures 7 mm (image 16, series 3). Osseous structures show age-related degenerative changes. No lytic or blastic bony lesions are seen. Included portions of the upper abdomen are unremarkable. IMPRESSION: 1. No pulmonary embolus. 2. Bilateral pleural effusions with probable mixed bibasilar infiltrate and atelectasis. 3. Multiple mildly prominent mediastinal and hilar lymph nodes; possibly reactive. 4. Cardiomegaly with pulmonary vascular congestion. 5. Bilateral pulmonary micronodules. 6 month follow-up is advised to ensure stability. Dictated by: Dictated on workstation # [id number] Dict: 07/03/23 1216 Trans: 07/03/23 1629 [facility] [id number] Interpreted by: KAELA MARQUES MD Electronically signed by: KAELA MARQUES MD 07/03/23 1929 Diagonstic Imaging: Xray Plain Films/CT/US/NM/MRI: chest Comments NAME: JACKIE TROTTER [facility] REC#: [id number] PT STATUS: ADM Kelly : 1945 PHYSICIAN: EDMOND RUSSO MD ADMIT DATE: 07/03/23 Signed Date of Exam:07/03/23 CHEST 1 VIEW, AP/PA ONLY INDICATION: Chest pain. EXAM: Frontal chest obtained at 10:51 a.m. There is cardiomegaly. There is mild right basilar atelectatic change versus infiltrate with elevation of the right hemidiaphragm. There is no pneumothorax or significant pleural fluid. There are surgical clips over the right axilla. IMPRESSION: Cardiomegaly with mild central vascular congestion. There is mild right basilar atelectasis versus infiltrate with elevation of the right hemidiaphragm. These findings appeared similar on 11/10/2021. Dictated by: Dictated on workstation # [id number] Dict: 07/03/23 1114 Trans: 07/03/23 1404 [facility] [id number] Interpreted by: LUCAS TATUM MD Electronically signed by: LUCAS TATUM MD 07/03/23 1404 Departure Communication (Admissions) Time/Spoke to Admitting Phy: 12:05 Dr. Pierre Impression Primary Impression: COVID-19 Additional Impressions: Hypoxia VAZQUEZ (dyspnea on exertion) Disposition: ADMITTED INPATIENT Condition: Stable Admissions Decision to Admit Reason: Admit from ER (General) Decision to Admit/Date: Jul 03, 2023 Time/Decision to Admit Time: 12:05 Departure-Patient Inst. Referrals: LATESHA BARROW DO (PCP/Family) Primary Care Physician Copy Copies To 1: LATESHA BARROW DO Copies To 2: ISRA CAVAZOS MD, JOSHUA T MD Jul 03, 2023 10:52
[2023-07-03 11:01] LABS: ALBUMIN 3.8 GM/DL (3.2-4.5); CHLORIDE 95 MMOL/L (98-107); POTASSIUM 4.2 MMOL/L (3.6-5.0); SODIUM 136 MMOL/L (135-145)
[2023-07-03 11:02] LABS: CALCIUM 9.5 MG/DL (8.5-10.1)
[2023-07-03 11:03] LABS: GLUCOSE 137 MG/DL (70-105)
[2023-07-03 11:04] LABS: TOTAL PROTEIN 7.6 GM/DL (6.4-8.2)
[2023-07-03 11:05] LABS: BILIRUBIN,TOTAL 0.2 MG/DL (0.1-1.0); CARBON DIOXIDE 29 MMOL/L (21-32)
[2023-07-03 11:07] LABS: ALKALINE PHOSPHATASE 113 U/L (40-136); CREATININE SERUM 0.82 MG/DL (0.60-1.30); GFR ESTIMATED 74
[2023-07-03 11:08] LABS: BUN/CREATININE RATIO 20
[2023-07-03 11:10] LABS: ALANINE AMINOTRANSFERASE 8 U/L (0-55); MAGNESIUM 1.6 MG/DL (1.6-2.4)
--- NOTE | 2023-07-03 11:17 | Diagnostic Imaging Report ---
INDICATION: Chest pain. EXAM: Frontal chest obtained at 10:51 a.m. There is cardiomegaly. There is mild right basilar atelectatic change versus infiltrate with elevation of the right hemidiaphragm. There is no pneumothorax or significant pleural fluid. There are surgical clips over the right axilla. IMPRESSION: Cardiomegaly with mild central vascular congestion. There is mild right basilar atelectasis versus infiltrate with elevation of the right hemidiaphragm. These findings appeared similar on 11/10/2021. Dictated by: Dictated on workstation # [id number]
[2023-07-03] MEDS ORDERED: dexAMETHasone INJ 10 MG/ML 1 ML VIAL IV ONE (12:00)
[2023-07-03] MEDS ORDERED: NS 100 ML (IVPB) BAG IV ONE (12:00)
[2023-07-03] MEDS ORDERED: IOHEXOL 350 MG/ML 100 ML (OMNIPAQUE 350) VIAL IV ONE (12:00)
[2023-07-03] MEDS ORDERED: RT-Ipratropium/Albuterol NEB 3 ML VIAL INH ONE (12:15)
--- NOTE | 2023-07-03 12:38 | Diagnostic Imaging Report ---
INDICATION: COVID positive patient. Elevated D-dimer. Hypoxia. COMPARISON: None TECHNIQUE: Routine postcontrast CTA of the chest was performed. Contrast was injected intravenously in time for optimal opacification of the pulmonary arteries. Multiplanar and 3-D reformats were also created and reviewed. Auto Exposure Controls were utilized during the CT exam to meet ALARA standards for radiation dose reduction. FINDINGS: No abnormal intraluminal filling defect is seen within the pulmonary arteries to the 1st subsegmental division. Thoracic aorta shows mild scattered calcified and noncalcified atherosclerotic disease, but by NASCET criteria, there is no focal significant stenosis. There is no evidence of dissection or aneurysm. The heart is mildly enlarged. There is no large pericardial effusion. There is mild to moderate scattered calcified coronary atherosclerosis. Bulky calcifications of the mitral valve are also noted. Several mildly prominent appearing hilar and mediastinal lymph nodes are identified. The largest is seen within the right hilar region and measures 1.9 cm. Evaluation of the lung sanches demonstrates mild right effusion and trace left effusion. There is associated dependent atelectasis. More patchy airspace densities are also noted within the bilateral lower lobes as well as the right middle lobe and are concerning for areas of infiltrate. Upper lung sanches show septal thickening with areas of groundglass density. Multiple pulmonary nodules are also noted. The largest of these is seen within the anterior medial left apex and measures 7 mm (image 16, series 3). Osseous structures show age-related degenerative changes. No lytic or blastic bony lesions are seen. Included portions of the upper abdomen are unremarkable. IMPRESSION: 1. No pulmonary embolus. 2. Bilateral pleural effusions with probable mixed bibasilar infiltrate and atelectasis. 3. Multiple mildly prominent mediastinal and hilar lymph nodes; possibly reactive. 4. Cardiomegaly with pulmonary vascular congestion. 5. Bilateral pulmonary micronodules. 6 month follow-up is advised to ensure stability. Dictated by: Dictated on workstation # [id number]
--- NOTE | 2023-07-03 12:48 | History & Physical-Hospitalist ---
History of Present Illness HPI/Chief Complaint Is a 78-year-old female past medical history of COPD with baseline 2 to 3 L/min oxygen requirement who presented to the emergency department due to weakness and shortness of breath. She states she has been suffering from a cold for about the past week. Of note Lin was on the of this month and her symptoms predated that making her stay home from Lin festivities. She continued to worsen over the past couple of days and finally saw her primary care provider today. She was noted to be hypoxic though she does normally wear oxygen was on room air in the 80s. She denies any nausea vomiting or diarrhea but states her appetite has not been the same though she is managing to eat okay . She complains of some congestion that she has not been able to get up. She denies any fevers. Source: patient Date Seen 07/03/23 Time Seen by a Provider: 12:42 Attending Physician Rj Velez DO PCP Admitting Physician: Attending Physician: Referring Physician Date of Admission Home Medications & Allergies Home Medications Reviewed patient Home Medication Reconciliation performed by pharmacy medication reconciliations collections technician and/or nursing. Patients Allergies have been reviewed. Allergies Allergies Coded Allergies adhesive tape (Unverified Allergy, Unknown, 02/15/22) Past Wvphfle-Haorsw-Acgmjx Hx Patient Social History Marrital Status: Tobacco Use?: No Smoking Status: Former Smoker Substance use?: No Alcohol Use?: No Pt feels they are or have been: No Immunizations Up To Date Date of Influenza Vaccine: Apr 17, 2022 First/Initial COVID19 Vaccinat: OCTOBER 2020 Second COVID19 Vaccination Jj: NOVEMBER 2020 Tetanus Booster (TDap): Less Than 5 Years Date of Pneumonia Vaccine: December 04, 2012 Seasonal Allergies Seasonal Allergies: Yes (MILD) Current Status Advance Directives: No Communicates: Verbally Primary Language: Northern Irish Preferred Spoken Language: Northern Irish Is interpretation needed?: No Implanted or Applied Medical D: None Past Medical History Surgeries: Gallbladder, Lumpectomy Pneumonia Currently Using CPAP: No High Cholesterol, Hypertension Sexually Transmitted Disease: No HIV/AIDS: No Kidney Stones Gastroesophageal Reflux Arthritis Hypothyroidsim, Diabetes, Non-Insulin dep Breast Did You Recieve Any Treatments: Yes What Type of Treatment Did You: Chemotherapy, Radiation, Surgical Intervention Blood Disorders: No Adverse Reaction/Blood Tranf: Yes (NO REACTION) Family Medical History No Pertinent Family Hx Review of Systems Constitutional: see HPI Physical Exam Physical Exam Vital Signs Vital Signs - First Documented Capillary Refill : Less Than 3 Seconds Height, Weight, BMI Height: 5'6.00" Weight: 192lbs. 0.0oz. 87.454091ya; 30.83 BMI Method:Stated General Appearance: No Apparent Distress, Chronically ill Respiratory: No Accessory Muscle Use, No Respiratory Distress, Decreased Breath Sounds; No Wheezing Cardiovascular: Regular Rate, Rhythm, No Murmur Gastrointestinal: Normal Bowel Sounds, Soft Neurologic/Psychiatric: Alert, Oriented x3 Results Results/Procedures Labs Laboratory Tests 07/03/23 10:35 07/04/23 05:26 Patient resulted labs reviewed. Imaging: Reviewed Imaging Report Imaging [facility] [place] NAME: JACKIE TROTTER [facility] REC#: [id number] PT STATUS: REG ER : 1945 PHYSICIAN: EDMOND RUSSO MD ADMIT DATE: 07/03/23/ER Draft Date of Exam:07/03/23 CHEST 1 VIEW, AP/PA ONLY INDICATION: Chest pain. EXAM: Frontal chest obtained at 10:51 a.m. There is cardiomegaly. There is mild right basilar atelectatic change versus infiltrate with elevation of the right hemidiaphragm. There is no pneumothorax or significant pleural fluid. There are surgical clips over the right axilla. IMPRESSION: Cardiomegaly with mild central vascular congestion. There is mild right basilar atelectasis versus infiltrate with elevation of the right hemidiaphragm. These findings appeared similar on 11/10/2021. Dictated on workstation # [id number] Dict: 07/03/23 1114 Trans: 07/03/23 1117 [facility] [id number] Interpreted by: LUCAS TATUM MD Electronically signed by: Assessment/Plan Admission Diagnosis Acute on chronic respiratory failure Admission Status: Inpatient Order (span 2 midnights) Reason for Inpatient Admission: see below Assessment and Plan Acute on chronic respiratory failure COVID Baseline 2-3lpm on 4lpm Continue Decadron Outside the window for Paxlovid/Remdesivir MAT protocol CTA without PE, some vascular congestion and ondules- needs 6 month follow HTN Mildly hypertensive in ER Trend, resume home meds HLD NIDDMII Hypothyroidism Continue home meds as able Hold metformin for now given contrast for CTA ANNE SAM MD Jul 03, 2023 12:48
[2023-07-03] MEDS ORDERED: RT-ALBUTEROL HFA 8.5 GM INHALER IH STA (13:12)
[2023-07-03 14:07] VITALS: BP 186/83
[2023-07-03] MEDS ORDERED: CALCIUM CARBONATE 500 MG CHEW TABLET PO PRN (14:30)
[2023-07-03] MEDS ORDERED: ENOXAPARIN 30 MG/0.3 ML SYRINGE SC SCH (14:30)
[2023-07-03] MEDS ORDERED: MELATONIN 3 MG TABLET PO PRN (14:30)
[2023-07-03] MEDS ORDERED: ANTACID SUSPENSION 30 ML UDC PO PRN (14:30)
[2023-07-03] MEDS ORDERED: ONDANSETRON INJECTION 4 MG/2 ML (SDV) IV PRN ×2 (14:30)
[2023-07-03] MEDS ORDERED: ACETAMINOPHEN 325 MG TABLET PO PRN (14:30)
[2023-07-03] MEDS ORDERED: guaiFENesin SYRUP 100 MG/5 ML 10 ML PO PRN (14:30)
--- NOTE | 2023-07-03 15:06 | Physical Therapy Evaluation ---
PT Evaluation-General Medical Diagnosis Admission Date Jul 03, 2023 at 13:43 Medical Diagnosis: COPD, COVID Onset Date: Jun 27, 2023 Therapy Diagnosis Therapy Diagnosis: Gait deficit Height/Weight Height (Feet): 5 Height (Inches): 6.00 Weight (Pounds): 192 Weight (Ounces): 0.0 Precautions Precautions/Isolations: Airborne Isolation, Droplet Isolation, Fall Prevention, Standard Precautions Weight Bear Status Right Lower Extremity: Right Full Weight Bearing Left Lower Extremity: Left Full Weight Bearing Referral Physician: Dr. Pierre Reason for Referral: Evaluation/Treatment Social History Home: Single Level Current Living Status: Alone Entry Into Home: Stairs With Railing PT Steps Into Home: 3 Prior Prior Level of Function SCALE: Activities may be completed with or without assistive devices. 1-Fyunhtlndk-sfijmop completes the activity by him/herself with no assistance from a helper. 5-Set-up or Clean-up Assistance-helper sets up or cleans up; patient completes activity. [place] assists only prior to or following the activity. 4-Supervision or Touching Assistance-helper provides verbal cues and/or touching/steadying and/or contact guard assistance as patient completes activity. Assistance may be provided throughout the activity or intermittently. 3-Partial/Moderate Assistance-helper does LESS THAN HALF the effort. [place] lifts, holds or supports trunk or limbs, but provides less than half the effort. 2-Substantial/Maximal Assistance-helper does MORE THAN HALF the effort. [place] lifts or holds trunk or limbs and provides more than half the effort. 2-Gnnsltdcq-whyobs does ALL the effort. Patient does none of the effort to complete the activity. Or, the assistance of 2 or more helpers is required for the patient to complete the activity. If activity was not attempted, code reason: 7-Patient Refused. 9-Not Applicable-not attempted and the patient did not perform the activity b efore the current illness, exacerbation or injury. 10-Not Attempted due to Environmental Limitations-(lack of equipment, weather restraints, etc.). 88-Not Attempted due to Medical Conditions or Safety Concerns. Bed Mobility: 6 Transfers (B,C,W/C): 6 Gait: 6 Stairs: 6 Indoor Mobility (Ambulation): Independent Stairs: Independent Prior Devices Use: Walker Prior Device Use: cane PT Evaluation-Current Subjective Patient lying supine in bed upon PT arrival, agreeable to treatment. Patient rates pain at 0/10 currently. Objective Patient Orientation: Person, Place, Time, Situation Attachments: Oxygen ROM/Strength ROM Lower Extremities WFLs BLEs all planes Strength Lower Extremities 3+/5 BLEs all planes Sensory Vision: Wears Glasses Hearing: Impaired Sensation Right Lower Extremit: Intact Sensation Left Lower Extremity: Intact Transfers Roll Left to Right (QC): 4 Sit to Lying (QC): 4 Lying to Sitting/Side of Bed(Q: 3 Sit to Stand (QC): 4 Chair/Jrq-wo-Qkvbj Xfer(QC): 4 Gait Does the Patient Walk?: Yes Mode of Locomotion: Walk Anticipated Mode of Locomotion: Walk Walk 10 feet (QC): 4 Distance: 30' Gait Assistive Device: None Balance Sitting Static: Normal Sitting Dynamic: Normal Standing Static: Fair Standing Dynamic: Fair Assessment/Needs Patient performs all bed mobility and transfers with CGA except for Sit to supine with min A. Patient ambulates 30 feet with no AD, with CGA, with verbal cues for balance, safety, progression and posture. Patient in bed post treatment with all needs met, nursing notified, call light in hand. Rehab Potential: Fair PT Group Home Goals Group Home Goals PT Group Home Goals Time Frame: Aug 04, 2023 Roll Left & Right (QC): 6 Sit to Lying (QC): 6 Lying-Sitting on Side/Bed(QC): 6 Sit to Stand (QC): 6 Chair/Fuw-ei-Cbqgk Xfer(QC): 6 Toilet Transfer (QC): 6 Does the Patient Walk: Yes Walk 10 feet (QC): 6 Walk 50ft with 2 Turns (QC): 6 Walk 150 ft (QC): 6 1 Step (curb) (QC): 4 4 Steps (QC): 4 PT Plan Problem List Problem List: Activity Tolerance, Functional Strength, Safety, Balance, Gait, Transfer, Bed Mobility, ROM, Other Treatment/Plan Treatment Plan: Continue Plan of Care Treatment Plan: Bed Mobility, Education, Functional Activity Ezequiel, Functional Strength, Group Therapy, Gait, Safety, Therapeutic Exercise, Transfers Treatment Duration: Aug 04, 2023 Frequency: 6 times per week Estimated Hrs Per Day: .25 hour per day Patient and/or Family Agrees t: Yes Safety Risks/Education Patient Education: Gait Training, Transfer Techniques Teaching Recipient: Patient Teaching Methods: Demonstration, Discussion Response to Teaching: Reinforcement Needed Time Time In: 1439 Time Out: 1451 DATE: Jul 03, 2023 Total Billed Treatment Time: 12 Total Billed Treatment Visit, ELMIRA JENKINS PT Jul 03, 2023 15:06
[2023-07-03 15:56] VITALS: BP 139/80
[2023-07-03] MEDS ORDERED: LISI20TA26 PO (16:51)
[2023-07-03 16:56] VITALS: BP 139/80
[2023-07-03] MEDS: ENOXAPARIN 40 MG/0.4 ML SYRINGE SC SCH (16:57)
[2023-07-03] MEDS ORDERED: RT-Ipratropium/Albuterol NEB 3 ML VIAL INH PRN (17:15)
[2023-07-03] MEDS ORDERED: RT-Ipratropium/Albuterol NEB 3 ML VIAL INH SCH (18:00)
[2023-07-03 19:09] VITALS: BP 166/74
[2023-07-03 20:32] VITALS: BP 139/65
[2023-07-03] MEDS: GEMFIBROZIL 600 MG TABLET PO SCH (20:32)
[2023-07-03] MEDS ORDERED: NON-FORMULARY MEDICATION 1 EA EA (Simvastatin 20 MG) PO SCH (21:00)
[2023-07-03] MEDS: RT-ALBUTEROL HFA 8.5 GM INHALER IH SCH (22:15)
[2023-07-03 23:42] VITALS: BP 132/63
[2023-07-04] MEDS: RT-ALBUTEROL HFA 8.5 GM INHALER IH SCH ×6 (03:14→22:33)
[2023-07-04 03:25] VITALS: BP 152/87
[2023-07-04 05:34] LABS: HEMATOCRIT 28 % (35-52); HEMOGLOBIN 8.6 g/dL (11.5-16.0); MEAN CORPUSCULAR HEMOGLOBIN 25 pg (25-34); MEAN CORPUSCULAR HGB CONC 31 g/dL (32-36); MEAN CORPUSCULAR VOLUME 82 fL (80-99); MEAN PLATELET VOLUME 10.4 fL (9.0-12.2); PLATELET COUNT 268 10^3/uL (130-400); WHITE BLOOD COUNT 3.9 10^3/uL (4.3-11.0)
[2023-07-04] MEDS: LEVOTHYROXINE 75 MCG TABLET PO SCH (05:48)
[2023-07-04] MEDS: LEVOTHYROXINE 100 MCG TABLET PO SCH (05:48)
[2023-07-04 05:52] LABS: CALCIUM 8.7 MG/DL (8.5-10.1); CREATININE SERUM 0.81 MG/DL (0.60-1.30)
[2023-07-04 07:16] VITALS: BP 173/79
[2023-07-04] MEDS: DOCUSATE SODIUM 100 MG CAPSULE PO SCH (08:41)
[2023-07-04] MEDS: dexAMETHasone 6 MG TABLET PO SCH (08:41)
[2023-07-04] MEDS: GEMFIBROZIL 600 MG TABLET PO SCH ×2 (08:41→20:56)
[2023-07-04] MEDS: amLODIPine 5 MG TABLET PO SCH (08:41)
[2023-07-04] MEDS ORDERED: LEVOTHYROXINE SODIUM 175 MCG PO SCH (09:00)
[2023-07-04 11:11] VITALS: BP 158/78
--- NOTE | 2023-07-04 11:13 | Occupational Therapy Eval ---
OT Evaluation-General/PLF Medical Diagnosis Admission Date Jul 03, 2023 at 13:43 Medical Diagnosis: COPD, COVID Onset Date: Jun 27, 2023 Therapy Diagnosis Therapy Diagnosis: covid Height/Weight Height (Feet): 5 Height (Inches): 6.00 Weight (Pounds): 192 Weight (Ounces): 0.0 Precautions Precautions/Isolations: Airborne Isolation, Droplet Isolation Weight Bear Status Weight Bearing Restriction: Full Weight Bearing Referral Physician: Dr. Pierre Referral Reason: Evaluation/Treatment Medical History Additional Medical History 78-year-old female past medical history of COPD with baseline 2 to 3 L/min oxygen requirement who presented to the emergency department due to weakness and shortness of breath. She states she has been suffering from a cold for about the past week. Of note Lin was on the of this month and her symptoms predated that making her stay home from [facility] festivities. She continued to worsen over the past couple of days and finally saw her primary care provider today. She was noted to be hypoxic though she does normally wear oxygen was on room air in the 80s. She denies any nausea vomiting or diarrhea but states her appetite has not been the same though she is managing to eat okay. She complains of some congestion Current History Ambulates self to bathroom Reviewed History: Yes Social History Home: Single Level Current Living Status: Alone Entry Into Home: Stairs With Railing Steps Into Home: 3 ADL-Prior Level of Function SCALE: Activities may be completed with or without assistive devices. 0-Etdvpdbaiv-geacgpy completes the activity by him/herself with no assistance from a helper. 5-Set-up or Clean-up Assistance-helper sets up or cleans up; patient completes activity. [place] assists only prior to or following the activity. 4-Supervision or Touching Assistance-helper provides verbal cues and/or touching/steadying and/or contact guard assistance as patient completes activity. Assistance may be provided throughout the activity or intermittently. 3-Partial/Moderate Assistance-helper does LESS THAN HALF the effort. [place] lifts, holds or supports trunk or limbs, but provides less than half the effort. 2-Substantial/Maximal Assistance-helper does MORE THAN HALF the effort. [place] lifts or holds trunk or limbs and provides more than half the effort. 2-Xkfirqhng-vtccjf does ALL the effort. Patient does none of the effort to complete the activity. Or, the assistance of 2 or more helpers is required for the patient to complete the activity. If activity was not attempted, code reason: 7-Patient Refused. 9-Not Applicable-not attempted and the patient did not perform the activity before the current illness, exacerbation or injury. 10-Not Attempted due to Environmental Limitations-(lack of equipment, weather restraints, etc.). 88-Not Attempted due to Medical Conditions or Safety Concerns. Self Care: Independent Functional Cognition: Independent Drive Self: Yes OT Current Status Subjective agreeable to participate Pain Location: No Pain Reported Mental Status/Objective Patient Orientation: Person, Place, Time, Situation Attachments: Oxygen Current Hand Dominance: Right Upper Extremity ROM BUE ROM WFLS Upper Extremity Coordination INTACT Upper Extremity Sensation INTACT Upper Extremity Strength 4/5 grossly ADL-Treatment Eating (QC): 6 Oral Hygiene (QC): 6 Shower/Bathe Self (QC): 7 Upper Body Dressing (QC): 5 Lower Body Dressing (QC): 5 On/Off Footwear (QC): 5 Toileting Hygiene (QC): 6 Education OT Patient Education: Correct positioning, Energy conservation, Exercise program, Progress toward Goal/Update tx plan, Purpose of tx/functional activiti es, Reviewed precautions, Rehab process, Safety issues, Transfer techniques Teaching Recipient: Patient Teaching Methods: Demonstration, Discussion Response to Teaching: Verbalize Understanding OT Cotton Puller Goals Cotton Puller Goals 1=Demonstrate adherence to instructed precautions during ADL tasks. 2=Patient will verbalize/demonstrate understanding of assistive devices/modifications for ADL. 3=Patient will improve strength/tolerance for activity to enable patient to perform ADL's. OT Education/Plan Problem List/Assessment Assessment: Decreased Activ Tolerance Discharge Recommendations Plan/Recommendations: Discontinue OT Treatment Plan/Plan of Care Patient would benefit from OT for education, treatment and training to promote independence in ADL's, mobility, safety and/or upper extremity function for ADL's. Plan of Care: OTHER (EVAL ONLY) Treatment Duration: Jul 13, 2023 Frequency: 3 times per week Estimated Hrs Per Day: .25 hour per day Agreement: Yes Rehab Potential: Good Time Start Time: 09:51 Stop Time: 10:09 DATE: Jul 04, 2023 Total Time Billed (hr/min): 18 Billed Treatment Time EVM 18 min PAULO TOVAR OT Jul 04, 2023 11:13
--- NOTE | 2023-07-04 11:52 | Progress Note - Hospitalist ---
Subjective HPI/CC On Admission Date Seen by Provider: Jul 04, 2023 Is a 78-year-old female past medical history of COPD with baseline 2 to 3 L/min oxygen requirement who presented to the emergency department due to weakness and shortness of breath. She states she has been suffering from a cold for about the past week. Of note Lin was on the of this month and her symptoms predated that making her stay home from [place] festivities. She continued to worsen over the past couple of days and finally saw her primary care provider today. She was noted to be hypoxic though she does normally wear oxygen was on room air in the 80s. She denies any nausea vomiting or diarrhea but states her appetite has not been the same though she is managing to eat okay. She complains of some congestion that she has not been able to get up. She denies any fevers. Subjective/Events-last exam pt reports doign well today. Feeling much better. No complaints. Hoping to get back to her dog soon. Objective Exam Vital Signs Vital Signs Date Time Temp Pulse Resp B/P (MAP) Pulse Ox O2 Delivery O2 Flow Rate FiO2 07/04/23 11:11 36.6 88 16 158/78 (104) 96 Nasal Cannula 4.00 Capillary Refill : Less Than 3 Seconds General Appearance: No Apparent Distress, Chronically ill Respiratory: Lungs Clear, No Accessory Muscle Use, Other (on 4lpm) Neurologic/Psychiatric: Alert, Oriented x3 Results/Procedures Lab Laboratory Tests 07/04/23 05:26 Patient resulted labs reviewed. Imaging: Reviewed Imaging Report Assessment/Plan Assessment and Plan Assess & Plan/Chief Complaint Acute on chronic respiratory failure COVID Baseline 2-3lpm on 4lpm- wean as able Continue Decadron Outside the window for Paxlovid/Remdesivir MAT protocol CTA without PE, some vascular congestion and nodules- needs 6 month follow HTN Mildly hypertensive in ER but improved today Trend, continue home meds HLD NIDDMII Hypothyroidism Continue home meds as able Hold metformin for now given contrast for CTA DVt ppx: ANNE Rodríguez MD Jul 04, 2023 11:52
[2023-07-04] MEDS: ENOXAPARIN 40 MG/0.4 ML SYRINGE SC SCH (15:08)
[2023-07-04] MEDS ORDERED: LEVO175T5 PO (15:32)
[2023-07-04] MEDS ORDERED: FAMO-356 PO (15:32)
[2023-07-04] MEDS ORDERED: METF-397 PO (15:32)
--- NOTE | 2023-07-04 15:37 | Physical Therapy Daily Note ---
PT Daily Note-Current Subjective Patient lying supine in bed upon PT arrival, agreeable to treatment. Patient rates pain at 0/10 currently. Pain Section J - Health Conditions 1. Rarely or not at all 2. Occasionally 3. Frequently 4. Almost constantly 8. Unable to answer Pain Effect on Sleep: 1 Pain Interference with Therapy: 1 Pain Interference w/Day-to-Day: 1 Transfers SCALE: Activities may be completed with or without assistive devices. 3-Nzuliartap-ktwberj completes the activity by him/herself with no assistance from a helper. 5-Set-up or Clean-up Assistance-helper sets up or cleans up; patient completes activity. [place] assists only prior to or following the activity. 4-Supervision or Touching Assistance-helper provides verbal cues and/or touching/steadying and/or contact guard assistance as patient completes activity. Assistance may be provided throughout the activity or intermittently. 3-Partial/Moderate Assistance-helper does LESS THAN HALF the effort. [place] lif ts, holds or supports trunk or limbs, but provides less than half the effort. 2-Substantial/Maximal Assistance-helper does MORE THAN HALF the effort. [place] lifts or holds trunk or limbs and provides more than half the effort. 0-Zmrrbshnq-cnvqnj does ALL the effort. Patient does none of the effort to complete the activity. Or, the assistance of 2 or more helpers is required for the patient to complete the activity. If activity was not attempted, code reason: 7-Patient Refused. 9-Not Applicable-not attempted and the patient did not perform the activity before the current illness, exacerbation or injury. 10-Not Attempted due to Environmental Limitations-(lack of equipment, weather restraints, etc.). 88-Not Attempted due to Medical Conditions or Safety Concerns. Roll Left & Right (QC): 4 Sit to Lying (QC): 4 Lying to Sitting/Side of Bed(Q: 4 Sit to Stand (QC): 4 Chair/Omk-sb-Teqgm Xfer(QC): 4 Toilet Transfer (QC): 4 Weight Bearing Right Lower Extremity: Right Full Weight Bearing Left Lower Extremity: Left Full Weight Bearing Gait Training Does the Patient Walk?: Yes Distance: 100' Walk 10 feet (QC): 4 Walk 50 ft with 2 Turns(QC): 4 Gait Assistive Device: None Assessment Current Status: Fair Progress Patient tolerated treatment fair. Performs all bed mobility and transfers with SBA. Patient ambulates 100 feet with no AD, with CGA and verbal cues or posture, safety and conservation of energy. Patient in bed post treatment with all needs met, nursing notified, call light in hand, bed alarm activated. PT Fiber Optic Technician Goals Usp Goals PT Usp Goals Time Frame: Aug 04, 2023 Roll Left & Right (QC): 6 Sit to Lying (QC): 6 Lying-Sitting on Side/Bed(QC): 6 Sit to Stand (QC): 6 Chair/Gzb-eh-Sjsna Xfer(QC): 6 Toilet Transfer (QC): 6 Does the Patient Walk: Yes Walk 10 feet (QC): 6 Walk 50ft with 2 Turns (QC): 6 Walk 150 ft (QC): 6 1 Step (curb) (QC): 4 4 Steps (QC): 4 PT Plan Problem List Problem List: Activity Tolerance, Functional Strength, Safety, Balance, Gait, Transfer, Bed Mobility, ROM Treatment/Plan Treatment Plan: Continue Plan of Care Treatment Plan: Bed Mobility, Education, Functional Activity Ezequiel, Functional Strength, Group Therapy, Gait, Safety, Therapeutic Exercise, Transfers Treatment Duration: Aug 04, 2023 Frequency: 6 times per week Estimated Hrs Per Day: .25 hour per day Patient and/or Family Agrees t: Yes Safety Risks/Education Patient Education: Gait Training, Transfer Techniques Teaching Recipient: Patient Teaching Methods: Demonstration, Discussion Response to Teaching: Verbalize Understanding, Return Demonstration Time Time In: 1420 Time Out: 1430 DATE: Jul 04, 2023 Total Billed Treatment Time: 10 Total Billed Treatment Visit, GT ELMIRA PETTY PT Jul 04, 2023 15:37
[2023-07-04 15:41] VITALS: BP_SYST 157; BP_SYST 171; BP_DIAS 80
[2023-07-04] MEDS ORDERED: hydrALAZINE INJECTION 20 MG/ML VIAL IV PRN ×2 (16:15→18:45)
[2023-07-04 19:32] VITALS: BP 156/67
[2023-07-04 23:13] VITALS: BP 125/58
[2023-07-05] MEDS: RT-ALBUTEROL HFA 8.5 GM INHALER IH SCH ×3 (03:02→11:35)
[2023-07-05 03:09] VITALS: BP 125/60
[2023-07-05] MEDS: LEVOTHYROXINE 100 MCG TABLET PO SCH (05:01)
[2023-07-05] MEDS: LEVOTHYROXINE 75 MCG TABLET PO SCH (05:01)
[2023-07-05 06:04] LABS: POTASSIUM 4.1 MMOL/L (3.6-5.0)
[2023-07-05 06:06] LABS: CALCIUM 8.3 MG/DL (8.5-10.1); HEMATOCRIT 25 % (35-52); HEMOGLOBIN 7.6 g/dL (11.5-16.0); MEAN CORPUSCULAR HEMOGLOBIN 25 pg (25-34); MEAN CORPUSCULAR HGB CONC 31 g/dL (32-36); MEAN CORPUSCULAR VOLUME 82 fL (80-99); MEAN PLATELET VOLUME 10.5 fL (9.0-12.2); PLATELET COUNT 272 10^3/uL (130-400)
[2023-07-05 06:10] LABS: CREATININE SERUM 0.81 MG/DL (0.60-1.30)
[2023-07-05 07:40] VITALS: BP 150/67
[2023-07-05] MEDS: dexAMETHasone 6 MG TABLET PO SCH (08:37)
[2023-07-05] MEDS: amLODIPine 5 MG TABLET PO SCH (08:37)
[2023-07-05] MEDS: GEMFIBROZIL 600 MG TABLET PO SCH (08:37)
[2023-07-05] MEDS: DOCUSATE SODIUM 100 MG CAPSULE PO SCH (08:37)
--- NOTE | 2023-07-05 09:49 | Discharge Summary ---
Diagnosis/Chief Complaint Date of Admission Jul 03, 2023 at 13:43 Date of Discharge Admission Diagnosis Acute on chronic respiratory failure Primary Care Rj Velez DO Discharge Summary Discharge Physical Exam Allergies: Coded Allergies: adhesive tape (Unverified Allergy, Unknown, 02/15/22) Vitals & I&Os Vital Signs Date Time Temp Pulse Resp B/P (MAP) Pulse Ox O2 Delivery O2 Flow Rate FiO2 07/05/23 13:53 07/05/23 13:10 96 07/05/23 11:48 36.4 16 94 Nasal Cannula 4.00 General Appearance: No Apparent Distress, Chronically ill Respiratory: Lungs Clear, No Respiratory Distress Cardiovascular: Regular Rate, Rhythm, No Murmur Gastrointestinal: Normal Bowel Sounds, Soft Neurologic/Psychiatric: Alert, Oriented x3 Hospital Course Patient was admitted to the hospital secondary to acute on chronic hypoxic respiratory failure and generalized weakness due to COVID. Her symptoms had been going on for over a week so she was outside of the window for treatment with Paxlovid or remdesivir. She was started on Decadron due to her hypoxia. She was seen by physical therapy and Occupational Therapy due to her weakness. She did very well and actually was able to be titrated down to less oxygen than he is normally on. She was able to be discharged home with a new oxygen prescription to follow-up with Dr. Velez follow-up this hospital stay. I did call and update Dr. Velez regarding this hospitalization. Of note CT of her chest was done in the emergency department which showed some possible micronodules and I did communicate this to Dr. Velez regarding need for follow-up. Patient was informed and info was placed in her discharge paperwork to ensure she follows up for repeat imaging. Labs (last 24 hrs) Patient resulted labs reviewed. Pending Labs Imaging: Reviewed Imaging Report Discussion & Recommendations Discharge Planning: >30 minutes discharge planning Discharge Home Medications: Active Scripts Active Prednisone 10 Mg Tab.ds.pk 10 Mg PO DAILY Take 6 tabs(60mg)daily,decrease by 1 tab(10MG)daily. Reported Acid Assemblies And Installations Inspector (FAMOTIDINE) (Famotidine) 20 Mg Tablet 20 Mg PO HS PRN Metformin HCl 500 Mg Tablet 1,000 Mg PO BID TAKES 2 (500MG) TABS Levothyroxine Sodium 175 Mcg Tablet 175 Mcg PO DAILY Lisinopril 20 Mg Tablet 20 Mg PO DAILY Amlodipine Besylate 5 Mg Tablet 5 Mg PO DAILY Gemfibrozil 600 Mg Tablet 600 Mg PO BID LAST FILLED 01-02-2023 #180/90 DAY SUPPLY Stool Softener (Docusate Sodium) 100 Mg Capsule 100 Mg PO DAILY Simvastatin 20 Mg Tablet 20 Mg PO HS Instructions to patient/family Please see electronic discharge instructions given to patient. ANNE SAM MD Jul 05, 2023 09:49
[2023-07-05 11:48] VITALS: BP 130/73
--- NOTE | 2023-07-05 11:57 | Discharge Inst-Simple/Standard ---
Discharge Inst-Standard Patient Instructions/Follow Up Plan of Care/Instructions/FU: Please continue to take your medications as written. Please follow up with your primary care doctor to follow up this hospital stay. Activity as Tolerated: Yes Discharge Diet: No Restrictions Return to The Hospital For: Chest pain, shortness of breath, fever, weakness, if you feel you are getting worse. Other Inst to Patient Please follow up with Dr Velez next week. You can come out of isolation on 07/07. You will need a repeat CT of your chest in 6 months to follow up some micronodules seen on your tests here to ensure stability or resolution. ANNE SAM MD Jul 05, 2023 11:57
[2023-07-05] MEDS ORDERED: PRED10TA22 PO (12:01)
== END 2023-07-05 13:45 | disposition home or self-care (01) | DRG 177 ==
LOC: EDUNIT# 10:18 → ER 10:20 → 4TH 13:43 → OBSVTOIN 13:43
PROVIDERS: ADMIT Family Medicine; ATTEND Family Medicine
PROC: 8E0ZXY6 Isolation (ICD-10-PCS; principal; 2023-07-03)
DX: U07.1 COVID-19 (principal); J96.21 Acute and chronic respiratory failure with hypoxia; Z79.890 Hormone replacement therapy; Z79.899 Other long term (current) drug therapy; Z87.891 Personal history of nicotine dependence; Z85.3 Personal history of malignant neoplasm of breast; Z85.810 Personal history of malignant neoplasm of tongue; I10 Essential (primary) hypertension; E11.9 Type 2 diabetes mellitus without complications; E78.00 Pure hypercholesterolemia, unspecified; E03.9 Hypothyroidism, unspecified; K21.9 Gastro-esophageal reflux disease without esophagitis; M19.90 Unspecified osteoarthritis, unspecified site; Z85.01 Personal history of malignant neoplasm of esophagus; Z92.21 Personal history of antineoplastic chemotherapy
CPT/HCPCS: 36415; 71045; 71275; 80048; 80053; 83735; 83874; 83880; 84484; 85025; 85027; 85379; 85610; 85730; 86141; 87636; 93005; 93041; 94640; 94760; 94761